=== PATIENT | female | born 1955 | race Caucasian/White ===

== ENCOUNTER 2018-07-29 09:21 | Inpatient (IN) | payer OTHER ==
--- NOTE | 2018-07-29 09:30 | EDM.PDOC ---
ED HPI GENERAL MEDICAL PROBLEM - General Chief Complaint: Cardiovascular Problem Stated Complaint: A FIB Time Seen by Provider: 07/29/18 09:30 - History of Present Illness INITIAL COMMENTS - FREE TEXT/NARRATIVE: 62-year-old male presents emergency room with palpitations weakness and fatigue. Patient awoke with this this morning has never had a quite like this in the past she's had palpitations before but nothing like this she is not having any chest pain chest pressure or dizziness associated with this and other than just not feeling right and have the palpitations is doing okay. She does have a significant past history of morbid obesity and hypothyroidism. She is on propanolol according to her regular doctor, Dr. Erwin he believes this is due to migraine headaches. Patient does not have significant coronary history other than prolapsed mitral valve. And pulmonary hypertension most likely related to her obesity and sleep apnea. - Related Data Allergies Allergy/AdvReac Type Severity Reaction Status Date / Time No Known Allergies Allergy Verified 07/29/18 09:30 Home Meds: Home Meds Aspirin [Ecotrin] 81 mg PO DAILY 07/29/18 [History] Cetirizine HCl 5 mg PO DAILY 07/29/18 [History] Empagliflozin/Metformin HCl [Synjardy 12.5-500 mg Tablet] 1 tab PO BIDMEALS 11/11 [History] Exenatide Microspheres [Bydureon Pen] 2 mg SUBCUT WEEKLY 07/29/18 [History] Fenofibrate,Micronized [Fenofibrate] 134 mg PO DAILY 07/29/18 [History] Fluticasone Furoate [Arnuity Ellipta] 1 inh TALHA DAILY PRN 07/29/18 [History] Imipramine HCl [Imipramine] 25 mg PO BEDTIME 07/29/18 [History] Levothyroxine 25 mcg PO DAILY 07/29/18 [History] Pravastatin Sodium [Pravastatin (Pravachol)] 40 mg PO DAILY 07/29/18 [History] Propranolol [Inderal LA] 80 mg PO DAILY 07/29/18 [History] Valsartan 160 mg PO DAILY 07/29/18 [History] Vortioxetine Hydrobromide [Trintellix] 10 mg PO DAILY 07/29/18 [History] ED ROS GENERAL - Review of Systems Review Of Systems: See Below Constitutional: Reports: No Symptoms HEENT: Reports: No Symptoms Respiratory: Reports: No Symptoms Cardiovascular: Reports: Palpitations. Denies: Chest Pain, Syncope Endocrine: Reports: No Symptoms GI/Abdominal: Reports: No Symptoms : Reports: No Symptoms Musculoskeletal: Reports: No Symptoms Skin: Reports: No Symptoms Neurological: Reports: No Symptoms Psychiatric: Reports: No Symptoms ED EXAM, GENERAL - Physical Exam Exam: See Below Exam Limited By: No Limitations General Appearance: Alert, No Apparent Distress Ears: Normal External Exam, Normal Canal, Hearing Grossly Normal, Normal TMs Nose: Normal Inspection, Normal Mucosa, No Blood Throat/Mouth: Normal Inspection, Normal Lips, Normal Teeth, Normal Gums, Normal Oropharynx, Normal Voice, No Airway Compromise Head: Atraumatic, Normocephalic Neck: Normal Inspection, Supple, Non-Tender, Full Range of Motion Respiratory/Chest: No Respiratory Distress, Lungs Clear, Normal Breath Sounds Cardiovascular: Regular Rate, Rhythm, No Edema, No Murmur GI/Abdominal: Normal Bowel Sounds, Soft, Non-Tender Extremities: No Pedal Edema Neurological: Alert, Oriented, CN II-XII Intact, Normal Cognition, No Motor/ Sensory Deficits Psychiatric: Normal Affect, Normal Mood Skin Exam: Warm, Dry, Intact. No: Diaphoretic Lymphatic: No Adenopathy EKG INTERPRETATION Rhythm: Other (Rapid ventricular response) Rate (Beats/Min): 160 Homer: Normal P-Wave: Absent QRS: Normal ST-T: Other (Very subtle nonspecific nondiagnostic changes) QT: Normal Comparison: NA - No Prior EKG EKG Interpretation Comments: Abnormal EKG Course - Vital Signs Last Recorded V/S: Last Vital Signs Temp 36.3 C 07/29/18 09:28 Pulse 121 H 07/29/18 13:20 Resp 18 07/29/18 12:23 BP 120/79 07/29/18 13:20 Pulse Ox 98 07/29/18 12:23 - Orders/Labs/Meds Orders: Active Orders 24 hr Category Date Time Status Patient Status [ADT] Routine ADT 07/29/18 14:47 Active EKG Documentation Completion [RC] STAT Care 07/29/18 09:41 Active Diltiazem 125 mg Med 07/29/18 12:30 Active Sodium Chloride 0.9% [Normal Saline] 100 ml IV TITRATE Metoclopramide [Reglan] Med 07/29/18 11:38 Active 10 mg IV ONETIME PRN Sodium Chloride 0.9% [Normal Saline] 1,000 ml Med 07/29/18 12:45 Active IV ASDIRECTED Medication Orders Diltiazem HCl 125 mg/ Sodium (Chloride) 125 mls @ 5 mls/hr IV TITRATE EZIO; Protocol Last Titration: 07/29/18 13:51 Dose: 15 mg/hr, 15 mls/hr Titration: 07/29/18 13:32 Dose: 10 mg/hr, 10 mls/hr Admin: 07/29/18 12:50 Dose: 5 mg/hr, 5 mls/hr Sodium Chloride (Normal Saline) 1,000 mls @ 50 mls/hr IV ASDIRECTED EZIO Last Admin: 07/29/18 12:50 Dose: 50 mls/hr Metoclopramide HCl (Reglan) 10 mg IV ONETIME PRN PRN Reason: Nausea/Vomiting Last Admin: 07/29/18 11:52 Dose: 10 mg Labs: Laboratory Tests 07/29/18 07/29/18 07/29/18 Range/Units 09:45 09:45 09:45 WBC 7.71 (3.98-10.04) K/mm3 RBC 5.23 H (3.98-5.22) M/mm3 Hgb 14.7 (11.2-15.7) gm/L Hct 44.8 (34.1-44.9) % MCV 85.7 (79.4-94.8) fl MCH 28.1 (25.6-32.2) pg MCHC 32.8 (32.2-35.5) g/dl RDW Std Deviation 45.5 (36.4-46.3) fL Plt Count 303 (182-369) K/mm3 MPV 10.9 (9.4-12.3) fl Neutrophils % (Manual) 40 (40-60) % Band Neutrophils % 0 (0-10) % Lymphocytes % (Manual) 56 H (20-40) % Atypical Lymphs % 0 % Monocytes % (Manual) 3 (2-10) % Eosinophils % (Manual) 0 L (0.7-5.8) % Basophils % (Manual) 1 (0.1-1.2) Platelet Estimate Adequate RBC Morph Comment Normal PT 10.9 (9.5-12.1) SECONDS INR 1.00 APTT 29 (24-31) SECONDS Sodium 142 (136-145) mEq/L Potassium 3.9 (3.5-5.1) mEq/L Chloride 107 (98-107) mEq/L Carbon Dioxide 23 (21-32) mEq/L Anion Gap 15.9 H (5-15) BUN 17 (7-18) mg/dL Creatinine 0.8 (0.55-1.02) mg/dL Est Cr Clr Drug Dosing 69.13 mL/min Estimated GFR (MDRD) > 60 (>60) mL/min BUN/Creatinine Ratio 21.3 H (14-18) Glucose 102 (80-115) mg/dL Calcium 9.3 (8.5-10.1) mg/dL Magnesium 2.1 (1.8-2.4) mg/dl Total Bilirubin 0.4 (0.2-1.0) mg/dL AST 35 (15-37) U/L ALT 40 (14-59) U/L Alkaline Phosphatase 67 (46-116) U/L Troponin I < 0.017 (0.00-0.056) ng/mL NT-Pro-B Natriuret Pep (0-125) pg/mL Total Protein 7.8 (6.4-8.2) g/dl Albumin 3.6 (3.4-5.0) g/dl Globulin 4.2 gm/dL Albumin/Globulin Ratio 0.9 L (1-2) TSH 3rd Generation 2.913 (0.358-3.74) uIU/mL 07/29/18 Range/Units 09:45 WBC (3.98-10.04) K/mm3 RBC (3.98-5.22) M/mm3 Hgb (11.2-15.7) gm/L Hct (34.1-44.9) % MCV (79.4-94.8) fl MCH (25.6-32.2) pg MCHC (32.2-35.5) g/dl RDW Std Deviation (36.4-46.3) fL Plt Count (182-369) K/mm3 MPV (9.4-12.3) fl Neutrophils % (Manual) (40-60) % Band Neutrophils % (0-10) % Lymphocytes % (Manual) (20-40) % Atypical Lymphs % % Monocytes % (Manual) (2-10) % Eosinophils % (Manual) (0.7-5.8) % Basophils % (Manual) (0.1-1.2) Platelet Estimate RBC Morph Comment PT (9.5-12.1) SECONDS INR APTT (24-31) SECONDS Sodium (136-145) mEq/L Potassium (3.5-5.1) mEq/L Chloride (98-107) mEq/L Carbon Dioxide (21-32) mEq/L Anion Gap (5-15) BUN (7-18) mg/dL Creatinine (0.55-1.02) mg/dL Est Cr Clr Drug Dosing mL/min Estimated GFR (MDRD) (>60) mL/min BUN/Creatinine Ratio (14-18) Glucose (80-115) mg/dL Calcium (8.5-10.1) mg/dL Magnesium (1.8-2.4) mg/dl Total Bilirubin (0.2-1.0) mg/dL AST (15-37) U/L ALT (14-59) U/L Alkaline Phosphatase (46-116) U/L Troponin I (0.00-0.056) ng/mL NT-Pro-B Natriuret Pep 345 H (0-125) pg/mL Total Protein (6.4-8.2) g/dl Albumin (3.4-5.0) g/dl Globulin gm/dL Albumin/Globulin Ratio (1-2) TSH 3rd Generation (0.358-3.74) uIU/mL Meds: Medications Generic Name Dose Route Start Last Admin Trade Name Freq PRN Reason Stop Dose Admin Diltiazem HCl 125 mg/ Sodium 125 mls @ 5 mls/hr 07/29/18 12:30 07/29/18 13:51 Chloride IV 15 mg/hr TITRATE EZIO 15 mls/hr Titration Protocol 5 MG/HR Sodium Chloride 1,000 mls @ 50 mls/hr 07/29/18 12:45 07/29/18 12:50 Normal Saline IV 50 mls/hr ASDIRECTED EZIO Administration Metoclopramide HCl 10 mg 07/29/18 11:38 07/29/18 11:52 Reglan IV 10 mg ONETIME PRN Administration Nausea/Vomiting Discontinued Medications Generic Name Dose Route Start Last Admin Trade Name Freq PRN Reason Stop Dose Admin Citric Acid/Sodium Citrate 30 ml 07/29/18 11:37 07/29/18 12:00 Bicitra Solution PO 07/29/18 11:38 30 ml ONETIME ONE Administration Citric Acid/Sodium Citrate Confirm 07/29/18 12:00 Bicitra Solution Administered 07/29/18 12:01 Dose 30 ml .ROUTE .STK-MED ONE Diltiazem HCl 10 mg 07/29/18 12:10 07/29/18 12:19 Cardizem IVPUSH 07/29/18 12:11 10 mg ONETIME STA Administration Diltiazem HCl Confirm 07/29/18 12:11 07/29/18 12:18 Cardizem Administered 07/29/18 12:12 Not Given Dose 50 mg .ROUTE .STK-MED ONE Enoxaparin Sodium 150 mg 07/29/18 11:07 07/29/18 11:32 Lovenox SUBCUT 07/29/18 11:08 150 mg ONETIME ONE Administration Famotidine 20 mg 07/29/18 11:37 07/29/18 11:52 Pepcid IVPUSH 07/29/18 11:38 20 mg ONETIME ONE Administration Fentanyl Confirm 07/29/18 11:42 Sublimaze Administered 07/29/18 11:43 Dose 100 mcg .ROUTE .STK-MED ONE Lactated Ringer's 1,000 mls @ 50 mls/hr 07/29/18 09:45 07/29/18 10:43 Ringers, Lactated IV 50 mls/hr ASDIRECTED EZIO Infusion Lactated Ringer's 500 mls @ 999 mls/hr 07/29/18 10:21 07/29/18 11:35 Ringers, Lactated IV 07/29/18 10:51 Not Given .BOLUS ONE Lidocaine HCl Confirm 07/29/18 11:41 Xylocaine-Mpf 1% Administered 07/29/18 11:42 Dose 6 mls @ as directed .ROUTE .STK-MED ONE Metoprolol Tartrate 5 mg 07/29/18 09:39 07/29/18 10:05 Lopressor IVPUSH 07/29/18 09:40 5 mg ONETIME ONE Administration Metoprolol Tartrate 5 mg 07/29/18 10:20 07/29/18 10:46 Lopressor IVPUSH 07/29/18 10:21 5 mg ONETIME ONE Administration Midazolam HCl Confirm 07/29/18 11:42 Versed 1 Mg/Ml Administered 07/29/18 11:43 Dose 2 mg .ROUTE .STK-MED ONE Propofol Confirm 07/29/18 11:42 Diprivan 20 Ml Administered 07/29/18 11:43 Dose 200 mg .ROUTE .STK-MED ONE - Re-Assessments/Exams Free Text/Narrative Re-Assessment/Exam: 07/29/18 11:31 We have attempted IV Lopressor with out much success she's had 2 doses and her blood pressure keeps going down with this the patient is been asymptomatic however however because of the low blood pressure will proceed to cardioversion. The patient will receive Lovenox anticipate starting Eliquis late this evening. Patient situation has been discussed with Dr. Erwin the patient's regular physician. Laboratory evaluation is nondiagnostic BNP is mildly elevated at 345 whether this is due to the tachyarrhythmia or under line compensated heart failure is unclear but further underscores cardioversion at this point the best we can tell is patient was absolutely asymptomatic yesterday and the time leading into this just awoke with palpitations this morning. She's had palpitations in the past but they've been much different from this she felt okay with those today's palpitations she had the sensation that something was wrong. 07/29/18 12:28 Deciding cardioverter the patient's blood pressure actually came up quite nicely we will go ahead and attempt further medical interventions she's received 10 mg of diltiazem and slowed with this we will start a drip and see how she does. Anesthesia has evaluated her and we can do cardioversion if needed 07/29/18 14:22 A she has better rate control on Cardizem drip discussed cardioversion which discomfort with some risk especially with the nature of the cardioversion and given her large body habitus would be technically much more difficult. Discussed this with the patient and she is comfortable staying on the drip and be in place in the hospital for further evaluation and treatment case discussed with Dr. Miller our hospitalist who will be over shortly to see the patient Departure - Departure Time of Disposition: 14:31 Disposition: Admitted As Inpatient 67 Clinical Impression: Atrial fibrillation with rapid ventricular response Referrals: Angel Luis Howard MD [Primary Care Provider] - Forms: ED Department Discharge - My Orders Last 24 Hours: My Active Orders 07/29/18 09:41 EKG Documentation Completion [RC] STAT 07/29/18 12:30 Diltiazem 125 mg Sodium Chloride 0.9% [Normal Saline] 100 ml IV TITRATE 07/29/18 12:45 Sodium Chloride 0.9% [Normal Saline] 1,000 ml IV ASDIRECTED 07/29/18 14:47 Patient Status [ADT] Routine - Assessment/Plan Last 24 Hours: My Active Orders 07/29/18 09:41 EKG Documentation Completion [RC] STAT 07/29/18 12:30 Diltiazem 125 mg Sodium Chloride 0.9% [Normal Saline] 100 ml IV TITRATE 07/29/18 12:45 Sodium Chloride 0.9% [Normal Saline] 1,000 ml IV ASDIRECTED 07/29/18 14:47 Patient Status [ADT] Routine
[2018-07-29] MEDS ORDERED: Metoprolol Tartrate 5 MG/5 ML SDV IVPUSH ONE ×2 (09:39→10:20)
[2018-07-29] MEDS ORDERED: Lactated Ringers 1,000 ML IV SCH (09:45)
[2018-07-29] MEDS ORDERED: Lactated Ringers 500 ML IV ONE (10:21)
--- NOTE | 2018-07-29 10:47 | CR ---
Chest: Portable view of the chest was obtained. Comparison: No prior chest x-ray, previous chest CT of 02/27/16 Heart size is within normal limits for portable technique. Tortuous thoracic aorta is seen. Lungs are clear without acute parenchymal change. Bony structures are grossly intact. Impression: 1. Nothing acute is appreciated on portable chest x-ray. Diagnostic code #1
[2018-07-29] MEDS ORDERED: Enoxaparin 150 MG/1 ML Syringe SUBCUT ONE (11:07)
--- NOTE | 2018-07-29 11:33 | PCM.PREANE ---
Preanesthetic Assessment - Anesthesia/Transfusion/Family Hx Anesthesia History: Prior Anesthesia Without Reaction Family History of Anesthesia Reaction: No Transfusion History: No Prior Transfusion(s) Intubation History: Unknown - Review of Systems General: No Symptoms Pulmonary: No Symptoms (Pulmonary HTN- from past use of phen/phen. DIXIE/CPAP) Cardiovascular: No Symptoms (New onset of Atrial Fibrillation with RVR 170-180'2 ), Dyspnea on Exertion Gastrointestinal: Diarrhea Neurological: Headache (history of migraines) Other: Reports: Easy Bruising, Diabetes (prediabetic), Thyroid Problems ( hypothyroid) - Physical Assessment NPO Status Date: 07/29/18 NPO Status Time: 06:30 Pulse: 144 O2 Sat by Pulse Oximetry: 98 Respiratory Rate: 18 Blood Pressure: 117/94 Vital Signs: Last Vital Signs Temp 36.3 C 07/29/18 09:28 Pulse 146 H 07/29/18 10:51 Resp 18 07/29/18 09:28 BP 105/60 07/29/18 10:51 Pulse Ox 98 07/29/18 09:28 Height: 1.68 m Weight: 157.397 kg ASA Class: 3E Mental Status: Alert & Oriented x3 Airway Class: Mallampati = 2 Dentition: Reports: Normal Dentition, Caries Thyro-Mental Finger Breadths: 3 Mouth Opening Finger Breadths: 3 ROM/Head Extension: Full Lungs: Clear to Auscultation, Normal Respiratory Effort Cardiovascular: Regular Rate, Regular Rhythm, No Murmurs - Lab Values: Laboratory Last Values WBC 7.71 K/mm3 (3.98-10.04) 07/29/18 09:45 RBC 5.23 M/mm3 (3.98-5.22) H 07/29/18 09:45 Hgb 14.7 gm/L (11.2-15.7) 07/29/18 09:45 Hct 44.8 % (34.1-44.9) 07/29/18 09:45 MCV 85.7 fl (79.4-94.8) 07/29/18 09:45 MCH 28.1 pg (25.6-32.2) 07/29/18 09:45 MCHC 32.8 g/dl (32.2-35.5) 07/29/18 09:45 RDW Std Deviation 45.5 fL (36.4-46.3) 07/29/18 09:45 Plt Count 303 K/mm3 (182-369) 07/29/18 09:45 MPV 10.9 fl (9.4-12.3) 07/29/18 09:45 Neutrophils % (Manual) 40 % (40-60) 07/29/18 09:45 Band Neutrophils % 0 % (0-10) 07/29/18 09:45 Lymphocytes % (Manual) 56 % (20-40) H 07/29/18 09:45 Atypical Lymphs % 0 % 07/29/18 09:45 Monocytes % (Manual) 3 % (2-10) 07/29/18 09:45 Eosinophils % (Manual) 0 % (0.7-5.8) L 07/29/18 09:45 Basophils % (Manual) 1 (0.1-1.2) 07/29/18 09:45 Platelet Estimate Adequate 07/29/18 09:45 RBC Morph Comment Normal 07/29/18 09:45 PT 10.9 SECONDS (9.5-12.1) 07/29/18 09:45 INR 1.00 07/29/18 09:45 APTT 29 SECONDS (24-31) 07/29/18 09:45 Sodium 142 mEq/L (136-145) 07/29/18 09:45 Potassium 3.9 mEq/L (3.5-5.1) 07/29/18 09:45 Chloride 107 mEq/L (98-107) 07/29/18 09:45 Carbon Dioxide 23 mEq/L (21-32) 07/29/18 09:45 Anion Gap 15.9 (5-15) H 07/29/18 09:45 BUN 17 mg/dL (7-18) 07/29/18 09:45 Creatinine 0.8 mg/dL (0.55-1.02) 07/29/18 09:45 Est Cr Clr Drug Dosing 69.13 mL/min 07/29/18 09:45 Estimated GFR (MDRD) > 60 mL/min (>60) 07/29/18 09:45 BUN/Creatinine Ratio 21.3 (14-18) H 07/29/18 09:45 Glucose 102 mg/dL (80-115) 07/29/18 09:45 Calcium 9.3 mg/dL (8.5-10.1) 07/29/18 09:45 Magnesium 2.1 mg/dl (1.8-2.4) 07/29/18 09:45 Total Bilirubin 0.4 mg/dL (0.2-1.0) 07/29/18 09:45 AST 35 U/L (15-37) 07/29/18 09:45 ALT 40 U/L (14-59) 07/29/18 09:45 Alkaline Phosphatase 67 U/L (46-116) 07/29/18 09:45 Troponin I < 0.017 ng/mL (0.00-0.056) 07/29/18 09:45 NT-Pro-B Natriuret Pep 345 pg/mL (0-125) H 07/29/18 09:45 Total Protein 7.8 g/dl (6.4-8.2) 07/29/18 09:45 Albumin 3.6 g/dl (3.4-5.0) 07/29/18 09:45 Globulin 4.2 gm/dL 07/29/18 09:45 Albumin/Globulin Ratio 0.9 (1-2) L 07/29/18 09:45 TSH 3rd Generation 2.913 uIU/mL (0.358-3.74) 07/29/18 09:45 All lab values reviewed and noted and within acceptable ranges to proceed with procedure. - Imaging/EKG Impressions: EKG: atrial fibrillation with RVR rate= 140 CXR: negative Stress Test: 2016 negative stress test - Allergies Allergies/Adverse Reactions: Allergies Allergy/AdvReac Type Severity Reaction Status Date / Time No Known Allergies Allergy Verified 07/29/18 09:30 - Anesthesia Plan Pre-Op Medication Ordered: Beta Annetta Beta Annetta: Metoprolol Med Last Dose Date: 07/29/18 Med Last Dose Time: 10:46 - Acknowledgements Anesthesia Type Planned: MAC Pt an Appropriate Candidate for the Planned Anesthesia: Yes Alternatives and Risks of Anesthesia Discussed w Pt/Guardian: Yes Pt/Guardian Understands and Agrees with Anesthesia Plan: Yes PreAnesthesia Questionnaire Cardiovascular History: Reports: Hypertension Respiratory History: Reports: Sleep Apnea, Other (See Below) Other Respiratory History: pulmonary hypertension, cpap at night Gastrointestinal History: Reports: Other (See Below) Other Gastrointestinal History: obesity Neurological History: Reports: Other (See Below) Other Neuro History: previous head injury Psychiatric History: Reports: Depression, Other (See Below) Other Psychiatric History: halfway memory loss Endocrine/Metabolic History: Reports: Diabetes, Type II, Hypothyroidism, Other ( See Below) Other Endocrine/Metabolic History: metabolic syndrome, vitamin d deficiency - Past Surgical History HEENT Surgical History: Reports: Tonsillectomy Female Surgical History: Reports: Other (See Below) Other Female Surgeries/Procedures: neoplasm of breast Musculoskeletal Surgical History: Reports: Other (See Below) Other Musculoskeletal Surgeries/Procedures:: ankle surgery - SUBSTANCE USE Smoking Status *Q: Never Smoker Second Hand Smoke Exposure: No Recreational Drug Use History: No - HOME MEDS Home Medications: Home Meds Aspirin [Ecotrin] 81 mg PO DAILY 07/29/18 [History] Cetirizine HCl 5 mg PO DAILY 07/29/18 [History] Empagliflozin/Metformin HCl [Synjardy 12.5-500 mg Tablet] 1 tab PO BIDMEALS 11/11 [History] Exenatide Microspheres [Bydureon Pen] 2 mg SUBCUT WEEKLY 07/29/18 [History] Fenofibrate,Micronized [Fenofibrate] 134 mg PO DAILY 07/29/18 [History] Fluticasone Furoate [Arnuity Ellipta] 1 inh TALHA DAILY PRN 07/29/18 [History] Imipramine HCl [Imipramine] 25 mg PO BEDTIME 07/29/18 [History] Levothyroxine 25 mcg PO DAILY 07/29/18 [History] Pravastatin Sodium [Pravastatin (Pravachol)] 40 mg PO DAILY 07/29/18 [History] Propranolol [Inderal LA] 80 mg PO DAILY 07/29/18 [History] Valsartan 160 mg PO DAILY 07/29/18 [History] Vortioxetine Hydrobromide [Trintellix] 10 mg PO DAILY 07/29/18 [History] - CURRENT (IN HOUSE) MEDS Current Meds: Current Medications Lactated Ringer's (Ringers, Lactated) 1,000 mls @ 50 mls/hr IV ASDIRECTED EZIO Last Infusion: 07/29/18 10:43 Dose: 50 mls/hr Discontinued Medications Enoxaparin Sodium (Lovenox) 150 mg SUBCUT ONETIME ONE Stop: 07/29/18 11:08 Lactated Ringer's (Ringers, Lactated) 500 mls @ 999 mls/hr IV .BOLUS ONE Stop: 07/29/18 10:51 Metoprolol Tartrate (Lopressor) 5 mg IVPUSH ONETIME ONE Stop: 07/29/18 09:40 Last Admin: 07/29/18 10:05 Dose: 5 mg Metoprolol Tartrate (Lopressor) 5 mg IVPUSH ONETIME ONE Stop: 07/29/18 10:21 Last Admin: 07/29/18 10:46 Dose: 5 mg
[2018-07-29] MEDS ORDERED: Famotidine 20 MG/2 ML SDV IVPUSH ONE (11:37)
[2018-07-29] MEDS ORDERED: Citric Acid/Sodium Citrate Solution 30 ML Cup PO ONE (11:37)
[2018-07-29] MEDS ORDERED: Metoclopramide 10 MG/2 ML SDV IV PRN (11:38)
[2018-07-29] MEDS ORDERED: Lidocaine 1% 0 ML ONE (11:41)
[2018-07-29] MEDS ORDERED: Propofol 200 MG/20 ML SDV ONE (11:42)
[2018-07-29] MEDS ORDERED: Midazolam 1 MG/ML 2 ML SDV ONE (11:42)
[2018-07-29] MEDS ORDERED: fentaNYL 100 MCG/2 ML SDV ONE (11:42)
[2018-07-29] MEDS ORDERED: Citric Acid/Sodium Citrate Solution 30 ML Cup ONE (12:00)
[2018-07-29] MEDS ORDERED: Diltiazem 50 MG/10 ML SDV IVPUSH STA (12:10)
[2018-07-29] MEDS ORDERED: Diltiazem 50 MG/10 ML SDV ONE (12:11)
[2018-07-29] MEDS ORDERED: Sodium Chloride 0.9% 1,000 ML IV SCH (12:45)
[2018-07-29] MEDS: Diltiazem 125 MG in Sodium Chloride 0.9% 100 ML IV SCH ×2 (12:50→21:39)
[2018-07-29] MEDS ORDERED: Sodium Chloride 0.9% 500 ML IV ONE (20:12)
[2018-07-29] MEDS ORDERED: Metoprolol Tartrate 5 MG/5 ML SDV IVPUSH PRN (21:30)
[2018-07-29] MEDS: Sodium Chloride 0.9% 1,000 ML IV SCH (21:44)
[2018-07-29] MEDS ORDERED: Ondansetron 4 MG Tab.DIS PO PRN (21:59)
[2018-07-29] MEDS ORDERED: HYDROmorphone 1 MG/ML Syringe IVPUSH PRN (21:59)
[2018-07-29] MEDS ORDERED: Acetaminophen/HYDROcodone 325-5 MG Tab PO PRN (21:59)
[2018-07-29] MEDS ORDERED: Acetaminophen 325 MG Tab PO PRN (21:59)
[2018-07-29] MEDS ORDERED: Ondansetron 4 MG/2 ML SDV IV PRN (21:59)
[2018-07-29] MEDS: Insulin Lispro 100 Unit/ML 3 ML KwikPen SUBCUT SCH (22:05)
--- NOTE | 2018-07-29 22:06 | PCM.HP ---
H&P History of Present Illness - General Date of Service: 07/29/18 Admit Problem/Dx: Admission Diagnosis/Problem Admission Diagnosis/Problem Atrial fibrillation with rapid ventricular response Source of Information: Patient History Limitations: Reports: No Limitations - History of Present Illness Initial Comments - Free Text/Narative: HPI: This is a 62 yo female with past medical hx/o DM2, Pulmonary HTN, HTN, prolapsed mitral valve, HLD, Hypothyroid, Depression, Sleep Apnea on CPAP, Morbid Obesity who comes in for Afib with RVR. She c/o palpitations, weakness and fatigue. She denies F/C, JOHNSON, Dizziness, N/V/D, Chest pain, or Urinary/GI symptoms. Her symptoms improved after receiving Lopressor, Cardizem and Lovenox in the ED. Her initial workup in the ED shows a CBC remarkable for RBC 5.23, Lymph 56% . Coagulation studies show PT 10.9, INR 1, APTT 29. Her chemistry is remarkable for AGap 15.9, BNP 345. TSH WNL. EKG in ED shows 160bpm w/ absent p waves. She is subsequently admitted to the ICU. She is a Full Code. Her PCP is Dr. Mandy Miller. - Related Data Allergies/Adverse Reactions: Allergies Allergy/AdvReac Type Severity Reaction Status Date / Time No Known Allergies Allergy Verified 07/29/18 09:30 Home Medications: Home Meds Empagliflozin/Metformin HCl [Synjardy 12.5-500 mg Tablet] 1 tab PO BID 07/29/18 [History] Exenatide Microspheres [Bydureon Pen] 2 mg SUBCUT WEEKLY 07/29/18 [History] Fenofibrate,Micronized [Fenofibrate] 134 mg PO DAILY 07/29/18 [History] Imipramine HCl [Imipramine] 25 mg PO BEDTIME 07/29/18 [History] Levothyroxine 25 mcg PO DAILY 07/29/18 [History] Pravastatin Sodium [Pravastatin (Pravachol)] 40 mg PO DAILY 07/29/18 [History] Propranolol [Inderal LA] 80 mg PO DAILY 07/29/18 [History] Valsartan 160 mg PO DAILY 07/29/18 [History] Past Medical History Cardiovascular History: Reports: Hypertension Respiratory History: Reports: Sleep Apnea, Other (See Below) Other Respiratory History: pulmonary hypertension, cpap at night Gastrointestinal History: Reports: Other (See Below) Other Gastrointestinal History: obesity Neurological History: Reports: Other (See Below) Other Neuro History: previous head injury Psychiatric History: Reports: Depression, Other (See Below) 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 Endocrine/Metabolic History: Reports: Diabetes, Type II, Hypothyroidism, Other ( See Below) Other Endocrine/Metabolic History: metabolic syndrome, vitamin d deficiency - Past Surgical History HEENT Surgical History: Reports: Tonsillectomy Female Surgical History: Reports: Other (See Below) 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 Denies: Fever, Chills HEENT: Reports: No Symptoms Pulmonary: Reports: No Symptoms. Denies: Shortness of Breath, Cough Cardiovascular: Reports: Palpitations, Blood Pressure Problem. Denies: Chest Pain, Edema Gastrointestinal: Reports: No Symptoms. Denies: Abdominal Pain, Diarrhea, Nausea, Vomiting Genitourinary: Reports: No Symptoms Musculoskeletal: Reports: No Symptoms Skin: Reports: No Symptoms Psychiatric: Reports: No Symptoms Neurological: Reports: No Symptoms Hematologic/Lymphatic: Reports: No Symptoms Immunologic: Reports: No Symptoms Exam - Exam Exam: See Below - Vital Signs Vital Signs: Last Vital Signs Temp 98.0 F 07/29/18 20:00 Pulse 136 H 07/29/18 18:00 Resp 19 07/29/18 20:00 BP 107/83 07/29/18 21:00 Pulse Ox 96 07/29/18 21:00 Weight: 366 lb 3.2 oz - Exam Quality Assessment: DVT Prophylaxis General: Alert, Oriented, Cooperative, Mild Distress HEENT: PERRLA, Hearing Intact, Mucosa Moist & Hanson, Nares Patent, Normal Nasal Septum, Posterior Pharynx Clear, Conjunctiva Clear, EOMI, EACs Clear, TMs Clear Neck: Supple, Trachea Midline, 2 Lungs: Clear to Auscultation, Normal Respiratory Effort Cardiovascular: Irregular Rhythm, Tachycardia. No: Regular Rate (irregular) GI/Abdominal Exam: Normal Bowel Sounds, Soft, Non-Tender, No Organomegaly, No Distention, No Abnormal Bruit, No Mass, Pelvis Stable (Female) Exam: Deferred Rectal (Female) Exam: Deferred Back Exam: Normal Inspection Extremities: Normal Inspection, Normal Range of Motion, Non-Tender, No Pedal Edema, Normal Capillary Refill Peripheral Pulses: 2+: Posterior Tibial (L), Posterior Tibial (R), Dorsalis Pedis (L), Dorsalis Pedis (R) Skin: Warm, Dry, Intact Neurological: Cranial Nerves Intact (grossly) Neuro Extensive - Mental Status: Alert, Oriented x3, Normal Mood/Affect, Normal Cognition, Memory Intact Psychiatric: Alert, Normal Affect, Normal Mood - Patient Data Lab Results Last 24 hrs: Laboratory Results - last 24 hr 07/29/18 07/29/18 07/29/18 Range/Units 09:45 09:45 09:45 WBC 7.71 (3.98-10.04) K/mm3 RBC 5.23 H (3.98-5.22) M/mm3 Hgb 14.7 (11.2-15.7) gm/L Hct 44.8 (34.1-44.9) % MCV 85.7 (79.4-94.8) fl MCH 28.1 (25.6-32.2) pg MCHC 32.8 (32.2-35.5) g/dl RDW Std Deviation 45.5 (36.4-46.3) fL Plt Count 303 (182-369) K/mm3 MPV 10.9 (9.4-12.3) fl Neutrophils % (Manual) 40 (40-60) % Band Neutrophils % 0 (0-10) % Lymphocytes % (Manual) 56 H (20-40) % Atypical Lymphs % 0 % Monocytes % (Manual) 3 (2-10) % Eosinophils % (Manual) 0 L (0.7-5.8) % Basophils % (Manual) 1 (0.1-1.2) Platelet Estimate Adequate RBC Morph Comment Normal PT 10.9 (9.5-12.1) SECONDS INR 1.00 APTT 29 (24-31) SECONDS Sodium 142 (136-145) mEq/L Potassium 3.9 (3.5-5.1) mEq/L Chloride 107 (98-107) mEq/L Carbon Dioxide 23 (21-32) mEq/L Anion Gap 15.9 H (5-15) BUN 17 (7-18) mg/dL Creatinine 0.8 (0.55-1.02) mg/dL Est Cr Clr Drug Dosing 69.13 mL/min Estimated GFR (MDRD) > 60 (>60) mL/min BUN/Creatinine Ratio 21.3 H (14-18) Glucose 102 (80-115) mg/dL POC Glucose (80-115) mg/dL Calcium 9.3 (8.5-10.1) mg/dL Magnesium 2.1 (1.8-2.4) mg/dl Total Bilirubin 0.4 (0.2-1.0) mg/dL AST 35 (15-37) U/L ALT 40 (14-59) U/L Alkaline Phosphatase 67 (46-116) U/L Troponin I < 0.017 (0.00-0.056) ng/mL NT-Pro-B Natriuret Pep (0-125) pg/mL Total Protein 7.8 (6.4-8.2) g/dl Albumin 3.6 (3.4-5.0) g/dl Globulin 4.2 gm/dL Albumin/Globulin Ratio 0.9 L (1-2) TSH 3rd Generation 2.913 (0.358-3.74) uIU/mL 07/29/18 07/29/18 Range/Units 09:45 20:19 WBC (3.98-10.04) K/mm3 RBC (3.98-5.22) M/mm3 Hgb (11.2-15.7) gm/L Hct (34.1-44.9) % MCV (79.4-94.8) fl MCH (25.6-32.2) pg MCHC (32.2-35.5) g/dl RDW Std Deviation (36.4-46.3) fL Plt Count (182-369) K/mm3 MPV (9.4-12.3) fl Neutrophils % (Manual) (40-60) % Band Neutrophils % (0-10) % Lymphocytes % (Manual) (20-40) % Atypical Lymphs % % Monocytes % (Manual) (2-10) % Eosinophils % (Manual) (0.7-5.8) % Basophils % (Manual) (0.1-1.2) Platelet Estimate RBC Morph Comment PT (9.5-12.1) SECONDS INR APTT (24-31) SECONDS Sodium (136-145) mEq/L Potassium (3.5-5.1) mEq/L Chloride (98-107) mEq/L Carbon Dioxide (21-32) mEq/L Anion Gap (5-15) BUN (7-18) mg/dL Creatinine (0.55-1.02) mg/dL Est Cr Clr Drug Dosing mL/min Estimated GFR (MDRD) (>60) mL/min BUN/Creatinine Ratio (14-18) Glucose (80-115) mg/dL POC Glucose 87 (80-115) mg/dL Calcium (8.5-10.1) mg/dL Magnesium (1.8-2.4) mg/dl Total Bilirubin (0.2-1.0) mg/dL AST (15-37) U/L ALT (14-59) U/L Alkaline Phosphatase (46-116) U/L Troponin I (0.00-0.056) ng/mL NT-Pro-B Natriuret Pep 345 H (0-125) pg/mL Total Protein (6.4-8.2) g/dl Albumin (3.4-5.0) g/dl Globulin gm/dL Albumin/Globulin Ratio (1-2) TSH 3rd Generation (0.358-3.74) uIU/mL Result Diagrams: 07/29/18 09:45 07/29/18 09:45 - Problem List (1) Morbid obesity with body mass index (BMI) of 50.0 to 59.9 in adult SNOMED Code(s): 356093186 ICD Code: E66.01 - MORBID (SEVERE) OBESITY DUE TO EXCESS CALORIES; Z68.43 - BODY MASS INDEX (BMI) 50-59.9, ADULT Status: Chronic Priority: Low Current Visit: Yes (2) Atrial fibrillation with rapid ventricular response SNOMED Code(s): 202852572604115 ICD Code: I48.91 - UNSPECIFIED ATRIAL FIBRILLATION Status: Acute Priority : High Current Visit: Yes (3) DM2 (diabetes mellitus, type 2) SNOMED Code(s): 25121878 ICD Code: E11.9 - TYPE 2 DIABETES MELLITUS WITHOUT COMPLICATIONS Status: Chronic Priority: Medium Current Visit: Yes Qualifiers: Diabetes mellitus residential insulin use: without pull up hand use Diabetes mellitus complication status: with unspecified complications Qualified Code(s) : E11.8 - Type 2 diabetes mellitus with unspecified complications (4) Pulmonary HTN SNOMED Code(s): 52425689 ICD Code: I27.20 - PULMONARY HYPERTENSION, UNSPECIFIED Status: Chronic Priority: Low Current Visit: No (5) HTN (hypertension) SNOMED Code(s): 18501341 ICD Code: I10 - ESSENTIAL (PRIMARY) HYPERTENSION Status: Chronic Priority : Low Current Visit: No Qualifiers: Hypertension type: unspecified Qualified Code(s): I10 - Essential (primary ) hypertension (6) HLD (hyperlipidemia) SNOMED Code(s): 04021095 ICD Code: E78.5 - HYPERLIPIDEMIA, UNSPECIFIED Status: Chronic Priority: Low Current Visit: No Qualifiers: Hyperlipidemia type: unspecified Qualified Code(s): E78.5 - Hyperlipidemia , unspecified (7) Hypothyroid SNOMED Code(s): 47086072 ICD Code: E03.9 - HYPOTHYROIDISM, UNSPECIFIED Status: Chronic Priority: Low Current Visit: No Qualifiers: Hypothyroidism type: unspecified Qualified Code(s): E03.9 - Hypothyroidism , unspecified (8) Obstructive sleep apnea on CPAP SNOMED Code(s): 37410773 ICD Code: G47.33 - OBSTRUCTIVE SLEEP APNEA (ADULT) (PEDIATRIC); Z99.89 - DEPENDENCE ON OTHER ENABLING MACHINES AND DEVICES Status: Chronic Priority: Low Current Visit: Yes Problem List Initiated/Reviewed/Updated: Yes Orders Last 24hrs: Active Orders 24 hr Category Date Time Status Patient Status [ADT] Routine ADT 07/29/18 14:47 Active Blood Glucose Check, Bedside [] QIDACANDBED Care 07/29/18 21:00 Active CPAP Adult [RT BiPAP/CPAP] [RC] ASDIRECTED Care 07/29/18 22:02 Ordered Cardiac Monitoring [RC] CONTINUOUS Care 07/29/18 21:59 Ordered Communication Order [RC] ROUTINE Care 07/30/18 05:00 Active Height and Weight [RC] DAILY Care 07/29/18 21:59 Ordered Intake and Output [RC] QSHIFT Care 07/29/18 21:59 Ordered May Shower [RC] ASDIRECTED Care 07/29/18 21:59 Ordered Oxygen Therapy [RC] PRN Care 07/29/18 21:59 Ordered Pulse Oximetry [RC] PRN Care 07/29/18 21:59 Ordered Up ad Lynette [RC] ASDIRECTED Care 07/29/18 21:59 Ordered VTE/DVT Education [RC] PER UNIT ROUTINE Care 07/29/18 21:59 Ordered Vital Signs [RC] Q4H Care 07/29/18 21:59 Ordered Consult to Diabetic Nurse Specialist [CONS] Routine Cons 07/29/18 21:59 Ordered Consult to Ruffling Hemmer Automatic [CONS] Routine Cons 07/29/18 21:59 Ordered Respiratory Care Assess and Treatment [CONS] Routine Cons 07/29/18 21:59 Ordered ADA Diabetic [[place] [employer] Diet] [DIET Diet 07/30/18 Breakfast Ordered ] Heart Healthy Diet [DIET] Diet 07/29/18 Dinner Active BASIC METABOLIC PANEL,BMP [CHEM] AM Lab 07/30/18 05:11 Ordered BASIC METABOLIC PANEL,BMP [CHEM] AM Lab 07/31/18 05:11 Ordered BASIC METABOLIC PANEL,BMP [CHEM] AM Lab 08/01/18 05:11 Ordered BASIC METABOLIC PANEL,BMP [CHEM] AM Lab 08/02/18 05:11 Ordered BASIC METABOLIC PANEL,BMP [CHEM] AM Lab 08/03/18 05:11 Ordered CBC WITH AUTO DIFF [HEME] AM Lab 07/30/18 05:11 Ordered CBC WITH AUTO DIFF [HEME] AM Lab 07/31/18 05:11 Ordered CBC WITH AUTO DIFF [HEME] AM Lab 08/01/18 05:11 Ordered CBC WITH AUTO DIFF [HEME] AM Lab 08/02/18 05:11 Ordered CBC WITH AUTO DIFF [HEME] AM Lab 08/03/18 05:11 Ordered GLYCOSYLATED HEMOGLOBIN,HGBA1C [CHEM] AM Lab 07/30/18 05:11 Ordered LIPID PANEL [CHEM] AM Lab 07/30/18 05:11 Ordered MAGNESIUM [CHEM] AM Lab 07/30/18 05:11 Ordered MAGNESIUM [CHEM] AM Lab 07/31/18 05:11 Ordered MAGNESIUM [CHEM] AM Lab 08/01/18 05:11 Ordered MAGNESIUM [CHEM] AM Lab 08/02/18 05:11 Ordered MAGNESIUM [CHEM] AM Lab 08/03/18 05:11 Ordered Acetaminophen [Tylenol] Med 07/29/18 21:59 Ordered 650 mg PO Q4H PRN Acetaminophen/HYDROcodone [Elcho 325-5 MG] Med 07/29/18 21:59 Ordered 1 tab PO Q4H PRN Diltiazem 125 mg Med 07/29/18 12:30 Active Sodium Chloride 0.9% [Normal Saline] 100 ml IV TITRATE Empagliflozin/Metformin HCl [Synjardy 12.5-500 mg Med 07/30/18 09:00 Ordered Tablet] 1 tab PO BID Enoxaparin [Lovenox] Med 07/29/18 22:00 Ordered 150 mg SUBCUT Q12H Fenofibrate,Micronized Med 07/30/18 09:00 Ordered 134 mg PO DAILY HYDROmorphone [Dilaudid] Med 07/29/18 21:59 Ordered 0.25 mg IVPUSH Q2H PRN Imipramine HCl Med 07/30/18 21:00 Ordered 25 mg PO BEDTIME Insulin Lispro [HumaLOG] Med 07/29/18 22:00 Active 0 unit SUBCUT QIDACANDBED Levothyroxine Med 07/30/18 09:00 Ordered 25 mcg PO DAILY Metoclopramide [Reglan] Med 07/29/18 11:38 Active 10 mg IV ONETIME PRN Metoprolol Tartrate [Lopressor] Med 07/29/18 21:30 Active 5 mg IVPUSH Q4H PRN Ondansetron [Zofran ODT] Med 07/29/18 21:59 Ordered 4 mg PO Q4H PRN Ondansetron [Zofran] Med 07/29/18 21:59 Ordered 4 mg IV Q4H PRN Pravastatin Sodium Med 07/30/18 09:00 Ordered 40 mg PO DAILY Propranolol [Inderal LA] Med 07/30/18 09:00 Ordered 80 mg PO DAILY Sodium Chloride 0.9% [Normal Saline] 1,000 ml Med 07/29/18 20:00 Active IV ASDIRECTED Temazepam [Restoril] Med 07/29/18 21:59 Ordered 7.5 mg PO BEDTIME PRN Valsartan [Valsartan] Med 07/30/18 09:00 Ordered 160 mg PO DAILY Resuscitation Status Routine Resus Stat 07/29/18 21:59 Ordered Medication Orders Acetaminophen (Tylenol) 650 mg PO Q4H PRN PRN Reason: Pain (Mild 1-3)/fever Hydrocodone Bitart/Acetaminophen (Elcho 325-5 Mg) 1 tab PO Q4H PRN PRN Reason: Pain (moderate 4-6) Enoxaparin Sodium (Lovenox) 150 mg SUBCUT Q12H [facility] Hydromorphone HCl (Dilaudid) 0.25 mg IVPUSH Q2H PRN PRN Reason: Pain (severe 7-10) Diltiazem HCl 125 mg/ Sodium (Chloride) 125 mls @ 5 mls/hr IV TITRATE [facility]; Protocol Last Admin: 07/29/18 21:39 Dose: 15 mg/hr, 15 mls/hr Titration: 07/29/18 21:39 Dose: 15 mg/hr, 15 mls/hr Titration: 07/29/18 13:51 Dose: 15 mg/hr, 15 mls/hr Titration: 07/29/18 13:32 Dose: 10 mg/hr, 10 mls/hr Admin: 07/29/18 12:50 Dose: 5 mg/hr, 5 mls/hr Sodium Chloride (Normal Saline) 1,000 mls @ 125 mls/hr IV ASDIRECTED [facility] Last Admin: 07/29/18 21:44 Dose: 125 mls/hr Imipramine HCl (Imipramine Hcl) 25 mg PO BEDTIME [facility] Insulin Human Lispro (Humalog) 0 unit SUBCUT QIDACANDBED [facility]; Protocol Last Admin: 07/29/18 22:05 Dose: Levothyroxine Sodium (Levothyroxine) 25 mcg PO DAILY [facility] Metoclopramide HCl (Reglan) 10 mg IV ONETIME PRN PRN Reason: Nausea/Vomiting Last Admin: 07/29/18 11:52 Dose: 10 mg Metoprolol Tartrate (Lopressor) 5 mg IVPUSH Q4H PRN PRN Reason: Tachycardia Non-Formulary Medication (Empagliflozin/Metformin Hcl [Synjardy 12.5-500 Mg Tablet]) 1 tab PO BID [facility] Non-Formulary Medication (Fenofibrate,Micronized) 134 mg PO DAILY [facility] Non-Formulary Medication (Pravastatin Sodium) 40 mg PO DAILY [facility] Ondansetron HCl (Zofran Odt) 4 mg PO Q4H PRN PRN Reason: nausea, able to take PO Ondansetron HCl (Zofran) 4 mg IV Q4H PRN PRN Reason: Nausea/Vomiting Propranolol HCl (Inderal La) 80 mg PO DAILY [facility] Temazepam (Restoril) 7.5 mg PO BEDTIME PRN PRN Reason: Sleep Assessment/Plan Comment:: I/P: Acute: Afib w/ RVR * Palpitations, weakness, and fatigue this AM * Risk factors: HTN, prolapsed mitral valve, DM2, DIXIE, Obesity * No h/o heart dz--> Stress test on 06/24/16 negative, per pt had Coronary calcium scan which was WNL * EKG in ED--> 160bpm, Absent p wave * IV Cardizem * Metoprolol PRN * Lovenox BID; pt to decide between Warfarin or novel oral anticoagulant * Monitor on Telemetry * F/U with Supervisor [employer] Chronic: DM2 on Bydureon, Synjardy * Lost 70lb in the last year with exercise and mindful eating * A1C pending Pulmonary HTN HTN Prolapsed mitral valve HLD * Lipid panel pending * Per pt, h/o normal Ca test and stress test Hypothyroid * TSH WNL Depression Sleep Apnea on CPAP Morbid Obesity Plan: Transferred to ICU Other orders as indicated above Routine AM labs Heart Healthy and ADA diet Dietary and Diabetic consult DVT Prophylaxis/GI Prophylaxis Code Status: Full Code; PCP: Dr. Erwin
[2018-07-29] MEDS: Enoxaparin 150 MG/1 ML Syringe SUBCUT SCH (22:10)
[2018-07-30] MEDS: Temazepam 7.5 MG Cap PO PRN ×2 (00:24→21:19)
[2018-07-30] MEDS: Sodium Chloride 0.9% 1,000 ML IV SCH (05:49)
[2018-07-30] MEDS: Levothyroxine 25 MCG Tab PO SCH (06:01)
[2018-07-30 06:28] LABS: HEMOGLOBIN A1C 5.7 % (4.50-6.20)
[2018-07-30] MEDS: Insulin Lispro 100 Unit/ML 3 ML KwikPen SUBCUT SCH ×4 (06:59→21:57)
[2018-07-30] MEDS: Famotidine 20 MG Tab PO SCH ×2 (08:45→21:10)
[2018-07-30] MEDS: Simvastatin 20 MG Tab PO SCH (08:46)
[2018-07-30] MEDS ORDERED: METFORMIN HCL PO SCH (09:00)
[2018-07-30] MEDS ORDERED: Propranolol 80 MG Cap.ER PO SCH (09:00)
[2018-07-30] MEDS ORDERED: Losartan 100 MG Tab PO SCH (09:00)
[2018-07-30] MEDS ORDERED: EMPAGLIFLOZIN PO SCH (09:00)
[2018-07-30] MEDS: Potassium Chloride 20 MEQ Tab.ER PO SCH ×2 (09:30→21:09)
[2018-07-30] MEDS: Fenofibrate 54 MG Tab PO SCH (09:31)
[2018-07-30] MEDS: Enoxaparin 150 MG/1 ML Syringe SUBCUT SCH (09:32)
--- NOTE | 2018-07-30 14:01 | PCM.PN ---
- General Info Date of Service: 07/30/18 Functional Status: Reports: Pain Controlled, Tolerating Diet, Ambulating, Urinating - Review of Systems General: Reports: No Symptoms HEENT: Reports: No Symptoms Pulmonary: Reports: No Symptoms Cardiovascular: Reports: No Symptoms Gastrointestinal: Reports: No Symptoms Genitourinary: Reports: No Symptoms Musculoskeletal: Reports: No Symptoms Skin: Reports: No Symptoms Neurological: Reports: No Symptoms Psychiatric: Reports: No Symptoms - Patient Data Vitals - Most Recent: Last Vital Signs Temp 36.7 C 07/30/18 11:38 Pulse 76 07/30/18 11:38 Resp 15 07/30/18 11:38 BP 136/84 07/30/18 11:38 Pulse Ox 100 07/30/18 11:38 Weight - Most Recent: 166.151 kg I&O - Last 24 Hours: Intake & Output 07/29/18 07/30/18 07/30/18 22:59 06:59 14:59 Intake Total 625 2314 240 Output Total 1200 700 Balance -575 1614 240 Lab Results Last 24 Hours: Laboratory Results - last 24 hr 07/29/18 07/30/18 07/30/18 Range/Units 20:19 05:30 05:30 WBC (3.98-10.04) K/mm3 RBC (3.98-5.22) M/mm3 Hgb (11.2-15.7) gm/L Hct (34.1-44.9) % MCV (79.4-94.8) fl MCH (25.6-32.2) pg MCHC (32.2-35.5) g/dl RDW Std Deviation (36.4-46.3) fL Plt Count (182-369) K/mm3 MPV (9.4-12.3) fl Neut % (Auto) (34.0-71.1) % Lymph % (Auto) (19.3-51.7) % [place] % (Auto) (4.7-12.5) % Eos % (Auto) (0.7-5.8) Baso % (Auto) (0.1-1.2) % Neut # (Auto) (1.56-6.13) K/mm3 Lymph # (Auto) (1.18-3.74) K/mm3 [place] # (Auto) (0.24-0.36) K/mm3 Eos # (Auto) (0.04-0.36) K/mm3 Baso # (Auto) (0.01-0.08) K/mm3 Sodium 142 (136-145) mEq/L Potassium 3.6 (3.5-5.1) mEq/L Chloride 106 (98-107) mEq/L Carbon Dioxide 25 (21-32) mEq/L Anion Gap 14.6 (5-15) BUN 13 (7-18) mg/dL Creatinine 0.8 (0.55-1.02) mg/dL Est Cr Clr Drug Dosing 69.13 mL/min Estimated GFR (MDRD) > 60 (>60) mL/min BUN/Creatinine Ratio 16.3 (14-18) Glucose 91 (80-115) mg/dL POC Glucose 87 (80-115) mg/dL Hemoglobin A1c 5.70 (4.50-6.20) % Calcium 8.7 (8.5-10.1) mg/dL Magnesium 2.0 (1.8-2.4) mg/dl Triglycerides 101 (<150) mg/dL Cholesterol 139 (<200) mg/dL LDL Cholesterol Direct 79 (<100) mg/dL HDL Cholesterol 49.0 (40-59) mg/dL 07/30/18 07/30/18 Range/Units 05:30 11:00 WBC 7.30 (3.98-10.04) K/mm3 RBC 4.88 (3.98-5.22) M/mm3 Hgb 13.9 (11.2-15.7) gm/L Hct 42.4 (34.1-44.9) % MCV 86.9 (79.4-94.8) fl MCH 28.5 (25.6-32.2) pg MCHC 32.8 (32.2-35.5) g/dl RDW Std Deviation 45.9 (36.4-46.3) fL Plt Count 267 (182-369) K/mm3 MPV 11.4 (9.4-12.3) fl Neut % (Auto) 52.9 (34.0-71.1) % Lymph % (Auto) 36.6 (19.3-51.7) % [place] % (Auto) 7.5 (4.7-12.5) % Eos % (Auto) 2.3 (0.7-5.8) Baso % (Auto) 0.4 (0.1-1.2) % Neut # (Auto) 3.86 (1.56-6.13) K/mm3 Lymph # (Auto) 2.67 (1.18-3.74) K/mm3 [place] # (Auto) 0.55 H (0.24-0.36) K/mm3 Eos # (Auto) 0.17 (0.04-0.36) K/mm3 Baso # (Auto) 0.03 (0.01-0.08) K/mm3 Sodium (136-145) mEq/L Potassium (3.5-5.1) mEq/L Chloride (98-107) mEq/L Carbon Dioxide (21-32) mEq/L Anion Gap (5-15) BUN (7-18) mg/dL Creatinine (0.55-1.02) mg/dL Est Cr Clr Drug Dosing mL/min Estimated GFR (MDRD) (>60) mL/min BUN/Creatinine Ratio (14-18) Glucose (80-115) mg/dL POC Glucose 87 (80-115) mg/dL Hemoglobin A1c (4.50-6.20) % Calcium (8.5-10.1) mg/dL Magnesium (1.8-2.4) mg/dl Triglycerides (<150) mg/dL Cholesterol (<200) mg/dL LDL Cholesterol Direct (<100) mg/dL HDL Cholesterol (40-59) mg/dL Med Orders - Current: Current Medications Acetaminophen (Tylenol) 650 mg PO Q4H PRN PRN Reason: Pain (Mild 1-3)/fever Last Admin: 07/30/18 00:24 Dose: 650 mg Hydrocodone Bitart/Acetaminophen ([place] 325-5 Mg) 1 tab PO Q4H PRN PRN Reason: Pain (moderate 4-6) Enoxaparin Sodium (Lovenox) 150 mg SUBCUT Q12H [facility] Last Admin: 07/30/18 09:32 Dose: 150 mg Famotidine (Pepcid) 20 mg PO BID [facility] Last Admin: 07/30/18 08:45 Dose: 20 mg Fenofibrate (Fenofibrate) 135 mg PO DAILY [facility] Last Admin: 07/30/18 09:31 Dose: 135 mg Hydromorphone HCl (Dilaudid) 0.25 mg IVPUSH Q2H PRN PRN Reason: Pain (severe 7-10) Diltiazem HCl 125 mg/ Sodium (Chloride) 125 mls @ 5 mls/hr IV TITRATE [facility]; Protocol Last Titration: 07/30/18 03:02 Dose: 0 mg/hr, 0 mls/hr Sodium Chloride (Normal Saline) 1,000 mls @ 125 mls/hr IV ASDIRECTED [facility] Last Admin: 07/30/18 05:49 Dose: 125 mls/hr Imipramine HCl (Imipramine Hcl) 25 mg PO BEDTIME [facility] Insulin Human Lispro (Humalog) 0 unit SUBCUT QIDACANDBED [facility]; Protocol Last Admin: 07/30/18 11:05 Dose: Not Given Levothyroxine Sodium (Levothyroxine) 25 mcg PO ACBREAKFAST [facility] Last Admin: 07/30/18 06:01 Dose: 25 mcg Losartan Potassium (Cozaar) 100 mg PO DAILY [facility] Last Admin: 07/30/18 08:46 Dose: 100 mg Metoclopramide HCl (Reglan) 10 mg IV ONETIME PRN PRN Reason: Nausea/Vomiting Last Admin: 07/29/18 11:52 Dose: 10 mg Metoprolol Tartrate (Lopressor) 5 mg IVPUSH Q4H PRN PRN Reason: Tachycardia Ondansetron HCl (Zofran Odt) 4 mg PO Q4H PRN PRN Reason: nausea, able to take PO Ondansetron HCl (Zofran) 4 mg IV Q4H PRN PRN Reason: Nausea/Vomiting Empagliflozin/Metformin Hcl [ Synjardy 12.5-500 Mg Tablet] 0 each PO BIDMEALS [facility] Potassium Chloride (Klor-Con M20) 40 meq PO BID [facility] Stop: 07/31/18 09:01 Last Admin: 07/30/18 09:30 Dose: 40 meq Propranolol HCl (Inderal La) 80 mg PO DAILY [facility] Last Admin: 07/30/18 08:45 Dose: 80 mg Simvastatin (Zocor) 20 mg PO DAILY [facility] Last Admin: 07/30/18 08:46 Dose: 20 mg Temazepam (Restoril) 7.5 mg PO BEDTIME PRN PRN Reason: Sleep Last Admin: 07/30/18 00:24 Dose: 7.5 mg Discontinued Medications Citric Acid/Sodium Citrate (Bicitra Solution) 30 ml PO ONETIME ONE Stop: 07/29/18 11:38 Last Admin: 07/29/18 12:00 Dose: 30 ml Citric Acid/Sodium Citrate (Bicitra Solution) Confirm Administered Dose 30 ml .ROUTE .STK-MED ONE Stop: 07/29/18 12:01 Diltiazem HCl (Cardizem) 10 mg IVPUSH ONETIME STA Stop: 07/29/18 12:11 Last Admin: 07/29/18 12:19 Dose: 10 mg Diltiazem HCl (Cardizem) Confirm Administered Dose 50 mg .ROUTE .STK-MED ONE Stop: 07/29/18 12:12 Last Admin: 07/29/18 12:18 Dose: Not Given Enoxaparin Sodium (Lovenox) 150 mg SUBCUT ONETIME ONE Stop: 07/29/18 11:08 Last Admin: 07/29/18 11:32 Dose: 150 mg Famotidine (Pepcid) 20 mg IVPUSH ONETIME ONE Stop: 07/29/18 11:38 Last Admin: 07/29/18 11:52 Dose: 20 mg Fentanyl (Sublimaze) Confirm Administered Dose 100 mcg .ROUTE .STK-MED ONE Stop: 07/29/18 11:43 Lactated Ringer's (Ringers, Lactated) 1,000 mls @ 50 mls/hr IV ASDIRECTED [facility] Last Infusion: 07/29/18 10:43 Dose: 50 mls/hr Lactated Ringer's (Ringers, Lactated) 500 mls @ 999 mls/hr IV .BOLUS ONE Stop: 07/29/18 10:51 Last Admin: 07/29/18 11:35 Dose: Not Given Lidocaine HCl (Xylocaine-Mpf 1%) Confirm Administered Dose 6 mls @ as directed .ROUTE .STK-MED ONE Stop: 07/29/18 11:42 Sodium Chloride (Normal Saline) 1,000 mls @ 50 mls/hr IV ASDIRECTED [facility] Last Admin: 07/29/18 12:50 Dose: 50 mls/hr Sodium Chloride (Normal Saline) 500 mls @ 999 mls/hr IV .BOLUS ONE Stop: 07/29/18 20:42 Last Admin: 07/29/18 21:40 Dose: Not Given Metoprolol Tartrate (Lopressor) 5 mg IVPUSH ONETIME ONE Stop: 07/29/18 09:40 Last Admin: 07/29/18 10:05 Dose: 5 mg Metoprolol Tartrate (Lopressor) 5 mg IVPUSH ONETIME ONE Stop: 07/29/18 10:21 Last Admin: 07/29/18 10:46 Dose: 5 mg Midazolam HCl (Versed 1 Mg/Ml) Confirm Administered Dose 2 mg .ROUTE .STK-MED ONE Stop: 07/29/18 11:43 Empagliflozin/Metformin Hcl [ Synjardy 12.5-500 Mg Tablet] 0 each PO BID [facility] Last Admin: 07/30/18 08:47 Dose: Not Given Propofol (Diprivan 20 Ml) Confirm Administered Dose 200 mg .ROUTE .STK-MED ONE Stop: 07/29/18 11:43 - Exam Quality Assessment: DVT Prophylaxis General: Alert, Oriented, Cooperative, No Acute Distress HEENT: Pupils Equal, Pupils Reactive, EOMI Neck: Trachea Midline, No JVD Lungs: Clear to Auscultation, Normal Respiratory Effort Cardiovascular: Regular Rate, Regular Rhythm GI/Abdominal Exam: Normal Bowel Sounds, Soft, Non-Tender, No Organomegaly, No Distention (Female) Exam: Deferred Back Exam: Normal Inspection Extremities: Normal Inspection, Non-Tender, Normal Capillary Refill Skin: Warm Neurological: No New Focal Deficit, Normal Gait, Normal Speech Psy/Mental Status: Alert, Normal Affect, Normal Mood - Problem List Review Problem List Initiated/Reviewed/Updated: Yes - My Orders Last 24 Hours: My Active Orders 07/29/18 20:00 Sodium Chloride 0.9% [Normal Saline] 1,000 ml IV ASDIRECTED 07/29/18 Dinner Heart Healthy Diet [DIET] 07/30/18 03:06 EKG 12 Lead [EK] Routine 07/30/18 03:07 EKG Documentation Completion [RC] ASDIRECTED 07/30/18 09:30 Potassium Chloride [Klor-Con M20] 40 meq PO BID - Plan Plan:: I/P: Acute: Afib w/ RVR-->SR, [id number] (2.8/2.9%)-->start Xarelto * Palpitations, weakness, and fatigue this AM * Risk factors: HTN, prolapsed mitral valve, DM2, DIXIE, Obesity * No h/o heart dz--> Stress test on 06/24/16 negative, per pt had Coronary calcium scan which was WNL * EKG in ED--> 160bpm, Absent p wave * IV Cardizem * Metoprolol scheduled * Lovenox BID; pt to decide between Warfarin or novel oral anticoagulant * Monitor on Telemetry * F/U with Velvet Weaver Chronic: DM2 on Bydureon, Synjardy * Lost 70lb in the last year with exercise and mindful eating * A1C pending Pulmonary HTN HTN Prolapsed mitral valve HLD * Lipid panel pending * Per pt, h/o normal Ca test and stress test Hypothyroid * TSH WNL Depression Sleep Apnea on CPAP, home setting Morbid Obesity Plan: Transferred to ICU Other orders as indicated above Routine AM labs Heart Healthy and ADA diet Dietary and Diabetic consult DVT Prophylaxis/GI Prophylaxis Code Status: Full Code; PCP: Dr. Erwin
[2018-07-30] MEDS: METFORMIN HCL PO SCH (16:05)
[2018-07-30] MEDS: EMPAGLIFLOZIN PO SCH (16:05)
[2018-07-30] MEDS: Rivaroxaban 10 MG Tab PO SCH (19:21)
[2018-07-31] MEDS: Insulin Lispro 100 Unit/ML 3 ML KwikPen SUBCUT SCH ×2 (06:34→12:33)
[2018-07-31] MEDS: EMPAGLIFLOZIN PO SCH (06:37)
[2018-07-31] MEDS: Levothyroxine 25 MCG Tab PO SCH (06:37)
[2018-07-31] MEDS: METFORMIN HCL PO SCH (06:37)
[2018-07-31] MEDS ORDERED: Metoprolol Tartrate 25 MG Tab PO SCH (08:00)
[2018-07-31] MEDS ORDERED: Losartan 25 MG Tab PO SCH (09:00)
[2018-07-31 09:16] VITALS: BP 119/82
[2018-07-31] MEDS: Famotidine 20 MG Tab PO SCH (09:16)
[2018-07-31] MEDS: Rivaroxaban 10 MG Tab PO SCH (09:17)
[2018-07-31] MEDS: Potassium Chloride 20 MEQ Tab.ER PO SCH (09:17)
[2018-07-31] MEDS: Simvastatin 20 MG Tab PO SCH (09:18)
[2018-07-31] MEDS: Fenofibrate 54 MG Tab PO SCH (09:19)
--- NOTE | 2018-07-31 12:37 | PCM.DCSUM1 ---
Discharge Summary - Hospital Course Free Text/Narrative:: 62 year old female with palpitations had A fib with RVR for approximately 18 hours during admission. She had experienced SOB, lightheadedness DRIER OPERATOR HEAD. The patient may have had previous episodes. The patient was admitted to the [facility] and converted to SR on a Cardizem drip. She was started on Lopressor 25 mg BID and Xarelto. Prescriptions were provided at [place]. A 2 D echo had been performed last year and was not repeated. During her hospitalization, she wore her home CPAP. NOAC started based on CHADS2/[id number] score, 2. Primary Dx PAF A Fib with RVR HTN HLD DIXIE Meds Lopressor 25 mg BID Xarelto 20 mg daily Follow up PCP, 7-10 days HPI Initial Comments: HPI: This is a 62 yo female with past medical hx/o DM2, Pulmonary HTN, HTN, prolapsed mitral valve, HLD, Hypothyroid, Depression, Sleep Apnea on CPAP, Morbid Obesity who comes in for Afib with RVR. She c/o palpitations, weakness and fatigue. She denies F/C, JOHNSON, Dizziness, N/V/D, Chest pain, or Urinary/GI symptoms. Her symptoms improved after receiving Lopressor, Cardizem and Lovenox in the ED. Her initial workup in the ED shows a CBC remarkable for RBC 5.23, Lymph 56% . Coagulation studies show PT 10.9, INR 1, APTT 29. Her chemistry is remarkable for AGap 15.9, BNP 345. TSH WNL. EKG in ED shows 160bpm w/ absent p waves. She is subsequently admitted to the ICU. She is a Full Code. Her PCP is Dr. Mandy Miller. Diagnosis: Stroke: No - Discharge Data Discharge Date: 07/31/18 Discharge Disposition: Home, Self-Care 01 Condition: Good - Patient Summary/Data Consults: Consultations 07/29/18 21:59 Consult to Diabetic Nurse Specialist [CONS] Routine Consult to Principal Embedded Software Engineer [CONS] Routine Respiratory Care Assess and Treatment [CONS] Routine - Patient Instructions Diet: Usual Diet as Tolerated Activity: As Tolerated Driving: May Drive Today Showering/Bathing: May Shower Notify Provider of: Fever, Increased Pain, Nausea and/or Vomiting - Discharge Plan *PRESCRIPTION DRUG MONITORING PROGRAM REVIEWED*: Not Applicable *COPY OF PRESCRIPTION DRUG MONITORING REPORT IN PATIENT MILLER: Not Applicable Prescriptions/Med Rec: Metoprolol Tartrate [Lopressor] 25 mg PO Q12H #60 tablet Rivaroxaban [Xarelto] 20 mg PO DAILY #30 tablet Home Medications: Home Meds Empagliflozin/Metformin HCl [Synjardy 12.5-500 mg Tablet] 1 tab PO BID 07/29/18 [History] Exenatide Microspheres [Bydureon Pen] 2 mg SUBCUT WEEKLY 07/29/18 [History] Fenofibrate,Micronized [Fenofibrate] 134 mg PO DAILY 07/29/18 [History] Imipramine HCl [Imipramine] 25 mg PO BEDTIME 07/29/18 [History] Levothyroxine 25 mcg PO DAILY 07/29/18 [History] Pravastatin Sodium [Pravastatin (Pravachol)] 40 mg PO DAILY 07/29/18 [History] Valsartan 160 mg PO DAILY 07/29/18 [History] Metoprolol Tartrate [Lopressor] 25 mg PO Q12H #60 tablet 07/31/18 [Rx] Rivaroxaban [Xarelto] 20 mg PO DAILY #30 tablet 07/31/18 [Rx] Oxygen Therapy Mode: Room Air Patient Handouts: Atrial Fibrillation, [id number] Forms: ED Department Discharge Referrals: Angel Luis Howard MD [Primary Care Provider] - - Discharge Summary/Plan Comment DC Time >30 min.: No Discharge Summary/Plan Comment: I/P: Acute: Afib w/ RVR-->SR, [id number] (2.8/2.9%)-->start Xarelto * Palpitations, weakness, and fatigue this AM * Risk factors: HTN, prolapsed mitral valve, DM2, DIXIE, Obesity * No h/o heart dz--> Stress test on 06/24/16 negative, per pt had Coronary calcium scan which was WNL * EKG in ED--> 160bpm, Absent p wave * IV Cardizem * Metoprolol scheduled, prescription provided at [place]; Inderal stopped. * Lovenox BID; pt to decide between Warfarin or novel oral anticoagulant * Monitor on Telemetry * F/U with [facility] Chronic: DM2 on Bydureon, Synjardy * Lost 70lb in the last year with exercise and mindful eating * A1C pending Pulmonary HTN HTN Prolapsed mitral valve HLD * Lipid panel pending * Per pt, h/o normal Ca test and stress test Hypothyroid * TSH WNL Depression Sleep Apnea on CPAP, home setting Morbid Obesity Plan: Other orders as indicated above Routine AM labs Heart Healthy and ADA diet Dietary and Diabetic consult DVT Prophylaxis/GI Prophylaxis Code Status: Full Code; PCP: Dr. Erwin - General Info Date of Service: 07/29/18 Functional Status: Reports: Pain Controlled, Tolerating Diet, Ambulating, Urinating - Review of Systems General: Reports: No Symptoms HEENT: Reports: No Symptoms Pulmonary: Reports: No Symptoms Cardiovascular: Reports: No Symptoms Gastrointestinal: Reports: No Symptoms Genitourinary: Reports: No Symptoms Musculoskeletal: Reports: No Symptoms Skin: Reports: No Symptoms Neurological: Reports: No Symptoms Psychiatric: Reports: No Symptoms - Patient Data Vitals - Most Recent: Last Vital Signs Temp 36.7 C 07/31/18 08:00 Pulse 76 07/31/18 09:16 Resp 15 07/31/18 08:00 BP 119/82 07/31/18 09:18 Pulse Ox 100 07/31/18 08:00 Weight - Most Recent: 166.65 kg I&O - Last 24 hours: Intake & Output 07/30/18 07/31/18 07/31/18 22:59 06:59 14:59 Intake Total 2960 500 360 Output Total 1200 Balance 1760 500 360 Lab Results - Last 24 hrs: Laboratory Results - last 24 hr 07/30/18 07/30/18 07/31/18 Range/Units 16:11 21:05 05:25 WBC 5.66 (3.98-10.04) K/mm3 RBC 4.78 (3.98-5.22) M/mm3 Hgb 13.5 (11.2-15.7) gm/L Hct 41.2 (34.1-44.9) % MCV 86.2 (79.4-94.8) fl MCH 28.2 (25.6-32.2) pg MCHC 32.8 (32.2-35.5) g/dl RDW Std Deviation 44.4 (36.4-46.3) fL Plt Count 248 (182-369) K/mm3 MPV 11.0 (9.4-12.3) fl Neut % (Auto) 56.2 (34.0-71.1) % Lymph % (Auto) 32.7 (19.3-51.7) % [place] % (Auto) 8.5 (4.7-12.5) % Eos % (Auto) 1.9 (0.7-5.8) Baso % (Auto) 0.5 (0.1-1.2) % Neut # (Auto) 3.18 (1.56-6.13) K/mm3 Lymph # (Auto) 1.85 (1.18-3.74) K/mm3 [place] # (Auto) 0.48 H (0.24-0.36) K/mm3 Eos # (Auto) 0.11 (0.04-0.36) K/mm3 Baso # (Auto) 0.03 (0.01-0.08) K/mm3 Sodium (136-145) mEq/L Potassium (3.5-5.1) mEq/L Chloride (98-107) mEq/L Carbon Dioxide (21-32) mEq/L Anion Gap (5-15) BUN (7-18) mg/dL Creatinine (0.55-1.02) mg/dL Est Cr Clr Drug Dosing mL/min Estimated GFR (MDRD) (>60) mL/min BUN/Creatinine Ratio (14-18) Glucose (80-115) mg/dL POC Glucose 100 97 (80-115) mg/dL Calcium (8.5-10.1) mg/dL Magnesium (1.8-2.4) mg/dl 07/31/18 Range/Units 05:25 WBC (3.98-10.04) K/mm3 RBC (3.98-5.22) M/mm3 Hgb (11.2-15.7) gm/L Hct (34.1-44.9) % MCV (79.4-94.8) fl MCH (25.6-32.2) pg MCHC (32.2-35.5) g/dl RDW Std Deviation (36.4-46.3) fL Plt Count (182-369) K/mm3 MPV (9.4-12.3) fl Neut % (Auto) (34.0-71.1) % Lymph % (Auto) (19.3-51.7) % [place] % (Auto) (4.7-12.5) % Eos % (Auto) (0.7-5.8) Baso % (Auto) (0.1-1.2) % Neut # (Auto) (1.56-6.13) K/mm3 Lymph # (Auto) (1.18-3.74) K/mm3 [place] # (Auto) (0.24-0.36) K/mm3 Eos # (Auto) (0.04-0.36) K/mm3 Baso # (Auto) (0.01-0.08) K/mm3 Sodium 140 (136-145) mEq/L Potassium 3.9 (3.5-5.1) mEq/L Chloride 106 (98-107) mEq/L Carbon Dioxide 24 (21-32) mEq/L Anion Gap 13.9 (5-15) BUN 12 (7-18) mg/dL Creatinine 0.7 (0.55-1.02) mg/dL Est Cr Clr Drug Dosing 79.01 mL/min Estimated GFR (MDRD) > 60 (>60) mL/min BUN/Creatinine Ratio 17.1 (14-18) Glucose 93 (80-115) mg/dL POC Glucose (80-115) mg/dL Calcium 9.0 (8.5-10.1) mg/dL Magnesium 2.0 (1.8-2.4) mg/dl Med Orders - Current: Current Medications Acetaminophen (Tylenol) 650 mg PO Q4H PRN PRN Reason: Pain (Mild 1-3)/fever Last Admin: 07/30/18 00:24 Dose: 650 mg Hydrocodone Bitart/Acetaminophen ([place] 325-5 Mg) 1 tab PO Q4H PRN PRN Reason: Pain (moderate 4-6) Famotidine (Pepcid) 20 mg PO BID [facility] Last Admin: 07/31/18 09:16 Dose: 20 mg Fenofibrate (Fenofibrate) 135 mg PO DAILY [facility] Last Admin: 07/31/18 09:19 Dose: Not Given Hydromorphone HCl (Dilaudid) 0.25 mg IVPUSH Q2H PRN PRN Reason: Pain (severe 7-10) Imipramine HCl (Imipramine Hcl) 25 mg PO BEDTIME [facility] Last Admin: 07/30/18 21:10 Dose: 25 mg Insulin Human Lispro (Humalog) 0 unit SUBCUT QIDACANDBED [facility]; Protocol Last Admin: 07/31/18 12:33 Dose: Not Given Levothyroxine Sodium (Levothyroxine) 25 mcg PO ACBREAKFAST [facility] Last Admin: 07/31/18 06:37 Dose: 25 mcg Losartan Potassium (Cozaar) 50 mg PO DAILY [facility] Last Admin: 07/31/18 09:18 Dose: 50 mg Metoclopramide HCl (Reglan) 10 mg IV ONETIME PRN PRN Reason: Nausea/Vomiting Last Admin: 07/29/18 11:52 Dose: 10 mg Metoprolol Tartrate (Lopressor) 5 mg IVPUSH Q4H PRN PRN Reason: Tachycardia Metoprolol Tartrate (Lopressor) 25 mg PO Q12H [facility] Last Admin: 07/31/18 09:16 Dose: 25 mg Ondansetron HCl (Zofran Odt) 4 mg PO Q4H PRN PRN Reason: nausea, able to take PO Ondansetron HCl (Zofran) 4 mg IV Q4H PRN PRN Reason: Nausea/Vomiting Empagliflozin/Metformin Hcl [ Synjardy 12.5-500 Mg Tablet] 0 each PO BIDMEALS [facility] Last Admin: 07/31/18 06:37 Dose: 1 each Rivaroxaban (Xarelto) 20 mg PO DAILY [facility] Last Admin: 07/31/18 09:17 Dose: 20 mg Simvastatin (Zocor) 20 mg PO DAILY [facility] Last Admin: 07/31/18 09:18 Dose: 20 mg Temazepam (Restoril) 7.5 mg PO BEDTIME PRN PRN Reason: Sleep Last Admin: 07/30/18 21:19 Dose: 7.5 mg Discontinued Medications Citric Acid/Sodium Citrate (Bicitra Solution) 30 ml PO ONETIME ONE Stop: 07/29/18 11:38 Last Admin: 07/29/18 12:00 Dose: 30 ml Citric Acid/Sodium Citrate (Bicitra Solution) Confirm Administered Dose 30 ml .ROUTE .STK-MED ONE Stop: 07/29/18 12:01 Diltiazem HCl (Cardizem) 10 mg IVPUSH ONETIME [facility] Stop: 07/29/18 12:11 Last Admin: 07/29/18 12:19 Dose: 10 mg Diltiazem HCl (Cardizem) Confirm Administered Dose 50 mg .ROUTE .STK-MED ONE Stop: 07/29/18 12:12 Last Admin: 07/29/18 12:18 Dose: Not Given Enoxaparin Sodium (Lovenox) 150 mg SUBCUT ONETIME ONE Stop: 07/29/18 11:08 Last Admin: 07/29/18 11:32 Dose: 150 mg Enoxaparin Sodium (Lovenox) 150 mg SUBCUT Q12H [facility] Last Admin: 07/30/18 09:32 Dose: 150 mg Famotidine (Pepcid) 20 mg IVPUSH ONETIME ONE Stop: 07/29/18 11:38 Last Admin: 07/29/18 11:52 Dose: 20 mg Fentanyl (Sublimaze) Confirm Administered Dose 100 mcg .ROUTE .K-MED ONE Stop: 07/29/18 11:43 Lactated Ringer's (Ringers, Lactated) 1,000 mls @ 50 mls/hr IV ASDIRECTED [facility] Last Infusion: 07/29/18 10:43 Dose: 50 mls/hr Lactated Ringer's (Ringers, Lactated) 500 mls @ 999 mls/hr IV .BOLUS ONE Stop: 07/29/18 10:51 Last Admin: 07/29/18 11:35 Dose: Not Given Lidocaine HCl (Xylocaine-Mpf 1%) Confirm Administered Dose 6 mls @ as directed .ROUTE .[facility]-MED ONE Stop: 07/29/18 11:42 Diltiazem HCl 125 mg/ Sodium (Chloride) 125 mls @ 5 mls/hr IV TITRATE [facility]; Protocol Last Titration: 07/30/18 03:02 Dose: 0 mg/hr, 0 mls/hr Sodium Chloride (Normal Saline) 1,000 mls @ 50 mls/hr IV ASDIRECTED [facility] Last Admin: 07/29/18 12:50 Dose: 50 mls/hr Sodium Chloride (Normal Saline) 500 mls @ 999 mls/hr IV .BOLUS ONE Stop: 07/29/18 20:42 Last Admin: 07/29/18 21:40 Dose: Not Given Sodium Chloride (Normal Saline) 1,000 mls @ 125 mls/hr IV ASDIRECTED [facility] Last Admin: 07/30/18 05:49 Dose: 125 mls/hr Losartan Potassium (Cozaar) 100 mg PO DAILY [facility] Last Admin: 07/30/18 08:46 Dose: 100 mg Metoprolol Tartrate (Lopressor) 5 mg IVPUSH ONETIME ONE Stop: 07/29/18 09:40 Last Admin: 07/29/18 10:05 Dose: 5 mg Metoprolol Tartrate (Lopressor) 5 mg IVPUSH ONETIME ONE Stop: 07/29/18 10:21 Last Admin: 07/29/18 10:46 Dose: 5 mg Midazolam HCl (Versed 1 Mg/Ml) Confirm Administered Dose 2 mg .ROUTE .STK-MED ONE Stop: 07/29/18 11:43 Empagliflozin/Metformin Hcl [ Synjardy 12.5-500 Mg Tablet] 0 each PO BID [facility] Last Admin: 07/30/18 08:47 Dose: Not Given Potassium Chloride (Klor-Con M20) 40 meq PO BID [facility] Stop: 07/31/18 09:01 Last Admin: 07/31/18 09:17 Dose: 40 meq Propofol (Diprivan 20 Ml) Confirm Administered Dose 200 mg .ROUTE .STK-MED ONE Stop: 07/29/18 11:43 Propranolol HCl (Inderal La) 80 mg PO DAILY [facility] Last Admin: 07/30/18 08:45 Dose: 80 mg - Exam Quality Assessment: Reports: DVT Prophylaxis General: Reports: Alert, Oriented, Cooperative, No Acute Distress HEENT: Reports: Pupils Equal, Pupils Reactive, EOMI Neck: Reports: Trachea Midline, No JVD Lungs: Reports: Normal Respiratory Effort Cardiovascular: Reports: Regular Rate, Regular Rhythm GI/Abdominal Exam: Normal Bowel Sounds, Soft, Non-Tender, No Organomegaly, No Distention (Female) Exam: Deferred Rectal (Female) Exam: Deferred Back Exam: Reports: Normal Inspection Extremities: Normal Inspection, Non-Tender, Normal Capillary Refill Skin: Reports: Warm Neurological: Reports: No New Focal Deficit, Normal Gait, Normal Speech Psy/Mental Status: Reports: Alert, Normal Affect, Normal Mood
== END 2018-07-31 13:17 | disposition home or self-care (01) | DRG 309 ==
LOC: JD.ED 09:21 → JD.ICU 14:47
PROVIDERS: ADMIT Internal Medicine Cardiovascular Disease; ATTEND Internal Medicine Cardiovascular Disease
DX: I48.0 Paroxysmal atrial fibrillation (principal); Z68.43 Body mass index [BMI] 50.0-59.9, adult; I10 Essential (primary) hypertension; E78.5 Hyperlipidemia, unspecified; G47.33 Obstructive sleep apnea (adult) (pediatric); E11.9 Type 2 diabetes mellitus without complications; I27.20 Pulmonary hypertension, unspecified; E03.9 Hypothyroidism, unspecified; E88.81 Metabolic syndrome and other insulin resistance; F32.9 Major depressive disorder, single episode, unspecified; E66.01 Morbid (severe) obesity due to excess calories; I34.1 Nonrheumatic mitral (valve) prolapse; Z79.84 Long term (current) use of oral hypoglycemic drugs; Z79.899 Other long term (current) drug therapy
CPT/HCPCS: 36415; 71045; 71045-26; 80048; 80053; 80061; 82962; 83036; 83735; 83880; 84443; 84484; 85007; 85025; 85027; 85610; 85730; 93005; 93010; 94762; 96361; 96365; 96366; 96372; 96375; 96376; 99284; 99285-25; A9270-GY; J1650; J2001; J2250; J2704; J2765; J3010; J3490; J7030; J7040; J7120

== ENCOUNTER 2020-01-03 10:23 | Emergency (ER) | payer OTHER ==
[2020-01-03 10:41] VITALS: BP 108/58; PULSE 56
[2020-01-03] MEDS ORDERED: Acetaminophen 325 MG Tab PO ONE (11:05)
--- NOTE | 2020-01-03 11:05 | EDM.PDOC ---
ED HPI GENERAL MEDICAL PROBLEM - General Chief Complaint: Lower Extremity Injury/Pain Stated Complaint: HEAD AND KNEE INJURY/FALL Time Seen by Provider: 01/03/20 10:58 Source of Information: Reports: Patient History Limitations: Reports: No Limitations - History of Present Illness INITIAL COMMENTS - FREE TEXT/NARRATIVE: Patient is a 64-year-old female who presents to the emergency department with complaints of a generalized headache and left knee pain after falling last night. She states she tripped on the carpet and hit the right side of her forehead on the wall. She also hurt her left knee. Patient is on Eliquis for A. fib. States she went to Occupational Therapy this morning, they recommended that she come to the ER for evaluation. She denies any vision changes, loss of consciousness, nausea, or vomiting. She has been able to ambulate since the injury, however states the left knee is painful. Treatments ICT SALES ASSISTANT: Reports: Other (see below) Other Treatments ICT SALES ASSISTANT: hydrocodone - Related Data Allergies Allergy/AdvReac Type Severity Reaction Status Date / Time No Known Allergies Allergy Verified 01/20/19 23:08 Home Meds: Home Meds Exenatide Microspheres [Bydureon Pen] 2 mg SUBCUT WEEKLY 07/29/18 [History] Fenofibrate,Micronized [Fenofibrate] 134 mg PO DAILY 07/29/18 [History] Pravastatin Sodium [Pravastatin (Pravachol)] 40 mg PO DAILY 07/29/18 [History] Valsartan 160 mg PO DAILY 07/29/18 [History] Apixaban [Eliquis] 5 mg PO BID 01/20/19 [History] Empagliflozin [Jardiance] 25 mg PO DAILY 01/20/19 [History] Topiramate [Topamax] 25 mg PO BID 01/20/19 [History] Vortioxetine [Trintellix] 20 mg PO DAILY 01/20/19 [History] Flecainide [Tambocor] 100 mg PO BID #60 tablet 01/26/19 [Rx] Levothyroxine 25 mcg PO ACBREAKFAST #30 tablet 01/26/19 [Rx] Levothyroxine [Synthroid] 50 mcg PO ACBREAKFAST #30 tablet 01/26/19 [Rx] Metoprolol Tartrate [Lopressor] 75 mg PO Q8H #135 tablet 01/26/19 [Rx] Past Medical History Cardiovascular History: Reports: Afib, Hypertension Respiratory History: Reports: Sleep Apnea, Other (See Below) Other Respiratory History: pulmonary hypertension, cpap at night Gastrointestinal History: Reports: Other (See Below) Other Gastrointestinal History: obesity Neurological History: Reports: Other (See Below) Other Neuro History: previous head injury Psychiatric History: Reports: Depression, Other (See Below) 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 Endocrine/Metabolic History: Reports: Diabetes, Type II, Hypothyroidism, Other ( See Below) Other Endocrine/Metabolic History: metabolic syndrome, vitamin d deficiency - Past Surgical History HEENT Surgical History: Reports: Tonsillectomy Female Surgical History: Reports: Other (See Below) 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 Denies: Blurred Vision, Vision Change Ears: Denies: Dizziness Nose: Reports: No Symptoms Mouth/Throat: Reports: No Symptoms Respiratory: Reports: No Symptoms Cardiovascular: Reports: No Symptoms. Denies: Chest Pain, Lightheadedness GI/Abdominal: Reports: No Symptoms. Denies: Nausea, Vomiting Genitourinary: Reports: No Symptoms Musculoskeletal: Reports: Other (Left knee pain) Skin: Reports: No Symptoms Neurological: Reports: Headache. Denies: Confusion, Dizziness Psychiatric: Reports: No Symptoms ED EXAM, GENERAL - Physical Exam Exam: See Below Exam Limited By: No Limitations General Appearance: Alert, WD/WN, No Apparent Distress Head: Normocephalic, Other (Faint abrasion to the right medial forehead. No swelling or ecchymosis noted.) Respiratory/Chest: No Respiratory Distress, Lungs Clear, Normal Breath Sounds, No Accessory Muscle Use, Chest Non-Tender Cardiovascular: Normal Peripheral Pulses, Regular Rate, Rhythm, No Edema, No Gallop, No JVD, No Murmur, No Rub Extremities: Other (Ecchymosis and edema to the medial aspect of the left knee. Patient does have full range of motion.) Neurological: Alert, Oriented, CN II-XII Intact, Normal Cognition, Normal Gait, Normal Reflexes, No Motor/Sensory Deficits Psychiatric: Normal Affect, Normal Mood Skin Exam: Warm, Dry, Intact, Normal Color, No Rash Course - Vital Signs Last Recorded V/S: Last Vital Signs Temp 97.8 F 01/03/20 10:37 Pulse 56 L 01/03/20 10:37 Resp 16 01/03/20 10:37 BP 108/58 L 01/03/20 10:37 Pulse Ox 98 01/03/20 10:37 - Orders/Labs/Meds Orders: Active Orders 24 hr Category Date Time Status Knee Min 4V Lt [CR] Stat Exams 01/03/20 11:04 Taken Meds: Medications Discontinued Medications Generic Name Dose Route Start Last Admin Trade Name Jonathan PRN Reason Stop Dose Admin Acetaminophen 975 mg 01/03/20 11:05 01/03/20 11:30 Tylenol PO 01/03/20 11:06 975 mg NOW ONE Administration - Re-Assessments/Exams Free Text/Narrative Re-Assessment/Exam: 01/03/20 12:[address] was negative for any acute abnormalities. X-ray of the left knee show degenerative changes but no signs of fracture. Hakeem wrap was applied to her left knee. Recommend ice and elevation. Discharge instructions as documented. Departure - Departure Time of Disposition: 12:04 Disposition: Home, Self-Care 01 Condition: Good Clinical Impression: Head injury without concussion or intracranial hemorrhage Qualifiers: Encounter type: initial encounter Qualified Code(s): S09.90XA - Unspecified injury of head, initial encounter Knee pain, left Qualifiers: Chronicity: acute Qualified Code(s): M25.562 - Pain in left knee - Discharge Information *PRESCRIPTION DRUG MONITORING PROGRAM REVIEWED*: No *COPY OF PRESCRIPTION DRUG MONITORING REPORT IN PATIENT MILLER: No Referrals: Angel Luis Howard MD [Primary Care Provider] - Forms: ED Department Discharge Additional Instructions: You were seen in the emergency department for a headache and pain to her left knee after falling last evening. A CT scan of your head and an x-ray of your left knee was completed and these were found to be normal. An Hakeem wrap has been applied to your left knee. Use this as needed for comfort. Recommend that you ice and elevate the extremity when at rest. You may use over-the- counter Tylenol as needed for any discomfort. If you are still experiencing significant pain after about 1 week, I would recommend that you follow-up with your primary care provider. Return to the ER as needed. Sepsis Event Note (ED) - Evaluation Sepsis Screening Result: No Definite Risk - Focused Exam Vital Signs: Vital Signs Temp Pulse Resp BP Pulse Ox 01/03/20 10:37 97.8 F 56 L 16 108/58 L 98 - My Orders Last 24 Hours: My Active Orders 01/03/20 11:04 Knee Min 4V Lt [CR] Stat - Assessment/Plan Last 24 Hours: My Active Orders 01/03/20 11:04 Knee Min 4V Lt [CR] Stat
--- NOTE | 2020-01-03 11:29 | CT ---
Head CT Technique: Multiple axial sections through the brain were obtained. Intravenous contrast was not utilized. Comparison: No prior head CT study, previous mri brain of 02/27/16 is available. Findings: Ventricles appear within normal limits. Sulci over the frontal regions and over the convexities are mildly prominent. No abnormal parenchymal densities are seen. No evidence of intracranial hemorrhage. No midline shift or mass-effect is seen. Bone window settings were reviewed. No acute calvarial finding is seen. Visualized mastoid sinuses and visualized paranasal sinuses show nothing acute. Impression: 1. Mild cortical atrophy as described above. 2. No acute intracranial abnormality is identified. Diagnostic code #2 This report was dictated in MDT
--- NOTE | 2020-01-04 09:21 | CR ---
Left knee: 4 views left knee were obtained. Comparison: No previous knee exam. Slight osteophytes are noted off the medial and lateral knees. Mild medial joint space narrowing is seen. Patellofemoral joint not seen well in profile. No joint effusion is seen. No acute fracture or dislocation is seen. Impression: 1. Degenerative change. 2. Nothing acute is seen on left knee exam. Diagnostic code #2 This report was dictated in MDT
== END 2020-01-03 12:19 | disposition home or self-care (01) ==
LOC: JD.ED 10:23
DX: S80.02XA Contusion of left knee, initial encounter (principal); S00.81XA Abrasion of other part of head, initial encounter; I48.91 Unspecified atrial fibrillation; I10 Essential (primary) hypertension; E66.9 Obesity, unspecified; F32.9 Major depressive disorder, single episode, unspecified; E11.9 Type 2 diabetes mellitus without complications; E03.9 Hypothyroidism, unspecified; Z68.43 Body mass index [BMI] 50.0-59.9, adult; Z79.01 Long term (current) use of anticoagulants; Z79.899 Other long term (current) drug therapy; W01.0XXA Fall on same level from slipping, tripping and stumbling without subsequent striking against object, initial encounter
CPT/HCPCS: 70450; 73564; 99284; A9270; 99282

== ENCOUNTER 2021-06-30 09:41 | Emergency (ER) | payer OTHER ==
[2021-06-30] MEDS ORDERED: Sodium Chloride 0.9% 10 ML Syringe FLUSH PRN (10:06)
[2021-06-30] MEDS ORDERED: Atropine 0.1 MG/ML 10 ML Syringe ONE (10:09)
--- NOTE | 2021-06-30 10:17 | EDM.PDOC ---
ED HPI GENERAL MEDICAL PROBLEM - General Chief Complaint: Cardiovascular Problem Stated Complaint: HEART RATE SLOWER Time Seen by Provider: 06/30/21 09:45 Source of Information: Reports: Patient, RN History Limitations: Reports: No Limitations - History of Present Illness INITIAL COMMENTS - FREE TEXT/NARRATIVE: Mrs. Gusman is a very pleasant 65-year-old woman who now presents to the ED stating that she experienced a few episodes of feeling dyspneic and lightheaded over the weekend, however, she did not think to check her heart rate, since her last episode of atrial fibrillation was about 2 years ago. When her symptoms recurred again this morning, however, she checked her heart rate, finding it to be 48 bpm. She rechecked it about 15 minutes later, finding it to be 41, then again about 15 minutes later, finding it to be 36. During that time, her dyspnea was worsening, and she had some chest pressure, therefore she decided to come to the ED. It is my understanding that the patient drove herself. The patient has a history of paroxysmal atrial fibrillation, on metoprolol and flecainide, both taken twice a day. She states that she has been compliant with them, including taking them both this morning. Here in the ED, the patient's initial BP was found to be depressed at 87/68, with bradycardia of 37 bpm. She is afebrile, saturating 96% on room air. Dannie pite her vital signs, she appears to be comfortable, in no acute distress. Prior to this past weekend, the patient denies having a recent fever, chills, sore throat, ear pain, nasal or sinus congestion, cough, dyspnea, chest pain, palpitations, nausea, vomiting, constipation, diarrhea, abdominal pain, urinary symptoms, recent weight gain or weight loss, recent bloody bowel movements or black bowel movements, recent joint aches, headaches, or rashes. I reviewed the PMHx/PSHx/SocHx, which was reviewed with the patient by the RN. The patient's PCP is Dr. Angel Luis Erwin. Her Board Certified Orthodontist is Dr. Nicholas Peralta. She has received 2 COVID vaccinations plus a booster, as well as an influenza vaccination this season. Chest Pain Score (Numeric/FACES): 2 - Related Data Allergies Allergy/AdvReac Type Severity Reaction Status Date / Time No Known Allergies Allergy Verified 06/30/21 10:34 Home Meds: Home Meds Exenatide Microspheres [Bydureon Pen] 2 mg SUBCUT WEEKLY 07/29/18 [History] Fenofibrate,Micronized [Fenofibrate] 134 mg PO DAILY 07/29/18 [History] Pravastatin Sodium [Pravastatin (Pravachol)] 40 mg PO DAILY 07/29/18 [History] Apixaban [Eliquis] 5 mg PO BID 01/20/19 [History] Empagliflozin [Jardiance] 25 mg PO DAILY 01/20/19 [History] Flecainide [Tambocor] 150 mg PO BID 06/30/21 [History] Levothyroxine 25 mg PO DAILY 06/30/21 [History] Metoprolol Tartrate [Lopressor] 25 mg PO BID 06/30/21 [History] Topiramate 75 mg PO BID 06/30/21 [History] Valsartan 80 mg PO DAILY 06/30/21 [History] Vortioxetine Hydrobromide [Brintellix] 20 mg PO DAILY 06/30/21 [History] Past Medical History Cardiovascular History: Reports: Afib (paroxysmal), Hypertension Respiratory History: Reports: Sleep Apnea, Other (See Below) Other Respiratory History: pulmonary hypertension, cpap at night Gastrointestinal History: Reports: Other (See Below) Other Gastrointestinal History: obesity Neurological History: Reports: Other (See Below) Other Neuro History: previous head injury Psychiatric History: Reports: Depression, Other (See Below) 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 Endocrine/Metabolic History: Reports: Diabetes, Type II, Hypothyroidism, Other (See Below) Other Endocrine/Metabolic History: metabolic syndrome, vitamin d deficiency - Infectious Disease History Infectious Disease History: Reports: Novel Coronavirus (dx'd May 2020) - Past Surgical History HEENT Surgical History: Reports: Tonsillectomy Female Surgical History: Reports: Other (See Below) 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 ED EXAM, GENERAL - Physical Exam Exam: See Below Exam Limited By: No Limitations General Appearance: Alert, WD/WN, No Apparent Distress Eye Exam: Bilateral Eye: EOMI, Normal Inspection Ears: Normal External Exam, Hearing Grossly Normal Nose: Normal Inspection Throat/Mouth: Normal Inspection, Normal Lips, Normal Voice, No Airway Compromise Head: Atraumatic, Normocephalic Neck: Normal Inspection, Full Range of Motion Respiratory/Chest: No Respiratory Distress, Lungs Clear, Normal Breath Sounds, No Accessory Muscle Use Cardiovascular: Normal Peripheral Pulses, No Gallop, No JVD, No Murmur, No Rub, Bradycardia (regular) Peripheral Pulses: 3+: Radial (L), Radial (R) GI/Abdominal: Normal Bowel Sounds, Soft, Non-Tender, No Organomegaly, No Distention, No Abnormal Bruit, No Mass Back Exam: Normal Inspection, Full Range of Motion, NT Extremities: Normal Inspection, Normal Range of Motion, Normal Capillary Refill Neurological: Alert, Oriented, Normal Cognition, No Motor/Sensory Deficits Psychiatric: Normal Affect Skin Exam: Warm, Dry, Intact, Normal Color, No Rash #1 Interpretation EKG Date: 06/30/21 Time: 09:57 Rhythm: Other (Sinus bradycardia) Rate (Beats/Min): 37 [place]: Normal P-Wave: Present QRS: Normal ST-T: Normal QT: Normal Comparison: Change From Previous EKG (Was in [facility] 01/26/2019) Course - Vital Signs Last Recorded V/S: Last Vital Signs Temp 35.6 C L 06/30/21 10:03 Pulse 50 L 06/30/21 16:10 Resp 19 06/30/21 16:10 BP 128/82 06/30/21 16:10 Pulse Ox 98 06/30/21 16:10 - Orders/Labs/Meds Orders: Active Orders 24 hr Category Date Time Status Peripheral IV Insertion Adult [OM.PC] Stat Oth 06/30/21 10:06 Ordered Labs: Laboratory Tests 06/30/21 06/30/21 06/30/21 Range/Units 10:15 10:15 10:15 WBC 6.84 (3.98-10.04) K/mm3 RBC 4.33 (3.98-5.22) M/mm3 Hgb 12.8 (11.2-15.7) gm/dl Hct 40.1 (34.1-44.9) % MCV 92.6 (79.4-94.8) fl MCH 29.6 (25.6-32.2) pg MCHC 31.9 L (32.2-35.5) g/dl RDW Std Deviation 47.2 H (36.4-46.3) fL Plt Count 267 (182-369) K/mm3 MPV 11.1 (9.4-12.3) fl Neut % (Auto) 53.5 (34.0-71.1) % Lymph % (Auto) 34.2 (19.3-51.7) % [place] % (Auto) 8.2 (4.7-12.5) % Eos % (Auto) 3.2 (0.7-5.8) Baso % (Auto) 0.6 (0.1-1.2) % Neut # (Auto) 3.66 (1.56-6.13) K/mm3 Lymph # (Auto) 2.34 (1.18-3.74) K/mm3 [place] # (Auto) 0.56 H (0.24-0.36) K/mm3 Eos # (Auto) 0.22 (0.04-0.36) K/mm3 Baso # (Auto) 0.04 (0.01-0.08) K/mm3 PT 11.9 (9.7-12.0) SECONDS INR 1.08 D-Dimer, Quantitative 0.30 (0.19-0.50) mg/L Sodium 143 (136-145) mEq/L Potassium 4.3 (3.5-5.1) mEq/L Chloride 107 (98-107) mEq/L Carbon Dioxide 27 (21-32) mEq/L Anion Gap 13.3 (5-15) BUN 20 H (7-18) mg/dL Creatinine 1.1 H (0.55-1.02) mg/dL Est Cr Clr Drug Dosing 48.37 mL/min Estimated GFR (MDRD) 50 (>60) mL/min BUN/Creatinine Ratio 18.2 H (14-18) Glucose 92 (70-99) mg/dL Calcium 8.5 (8.5-10.1) mg/dL Magnesium 2.3 (1.8-2.4) mg/dL Total Bilirubin 0.4 (0.2-1.0) mg/dL AST 20 (15-37) U/L ALT 17 (14-59) U/L Alkaline Phosphatase 52 (46-116) U/L Troponin I < 0.017 (0.00-0.056) ng/mL Total Protein 6.7 (6.4-8.2) g/dl Albumin 3.5 (3.4-5.0) g/dl Globulin 3.2 gm/dL Albumin/Globulin Ratio 1.1 (1-2) Meds: Medications Discontinued Medications Generic Name Dose Route Start Last Admin Trade Name Jonathan PRN Reason Stop Dose Admin Atropine Sulfate Confirm 06/30/21 10:09 06/30/21 13:56 Atropine 0.1 Mg/Ml 10 Ml Syringe Administered 06/30/21 10:10 Not Given Dose 1 mg .ROUTE .STK-MED ONE Sodium Chloride 10 ml 06/30/21 10:06 06/30/21 13:54 Sodium Chloride 0.9% 10 Ml Syringe FLUSH 10 ml ASDIRECTED PRN Administration Keep Vein Open - Re-Assessments/Exams Free Text/Narrative Re-Assessment/Exam: 06/30/21 10:18 Several blood tests, a portable chest x-ray, and an ECG were ordered at triage. I asked Bisi YEBOAH to place pacer pads on the patient. The patient's ECG demonstrates a sinus bradycardia at 37 bpm, with no ischemic changes. No AV blocks. Her QTc is within normal limits. Case discussed with Dr. Gibbons, Board Certified Orthodontist on-call for Dr. Peralta, at 10:15. 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 The plan will be to keep the patient here in the ED to wait for the metoprolol to wear off and her heart rate increase. Obviously, if her condition declines, she may need to be externally paced, and in that case, I would need to sedate and intubate her. In that case, I would need to transfer her. Provided the patient does well, however, he recommended that I have her follow-up with Dr. Fabian DHILLON. 06/30/21 11:21 Portable chest x-ray is read by Dr. Bliss as: 1. Questionable nodule off the inferior right hilar region. Recommend contrast-enhanced chest CT to further evaluate. 2. Other incidental findings. No other acute finding is seen on the portable chest x-ray. 12/06/21 12:08 The patient's CBC is unremarkable. Her CMP is remarkable for BUN/Cr slightly elevated at 20/1.1, with the remainder of her CMP being unremarkable. Her magnesium level is within normal limits at 2.3. Her troponin is undetectably low. Her D-dimer is within normal limits at 0.30. Her PT/INR within normal limits. At present, the patient's BP is 101/51, with a HR of 32 bpm. 06/30/21 15:39 The patient's BP is now 110/72, with a HR of 51 bpm. 06/30/21 15:46 Test results discussed with the patient and her (now present). I will discharge her home with the recommendation that she decrease her metoprolol to 25 mg nightly. She is currently on 25 mg po BID, however, unfortunately, that is the smallest dose that metoprolol tartrate comes, therefore I cannot decrease the dosage. Taking the metoprolol at night will mitigate symptoms to while she is sleeping, and she should do well during the day, however, if she continues to be symptomatic, the metoprolol may need to be discontinued altogether. She is to follow-up with Dr. Peralta at the next available appointment. Departure - Departure Time of Disposition: 15:48 Disposition: Home, Self-Care 01 Condition: Good Clinical Impression: Drug-induced sinus bradycardia Instructions: Bradycardia, Adult Referrals: Angel Luis Howard MD [Primary Care Provider] - Nicholas Peralta MD [Ordering Only Provider] - Forms: ED Department Discharge Additional Instructions: You were seen in the emergency room after you became dizzy and short of breath this morning, with a low heart rate. In the ER, your blood pressure was found to be low, with a heart rate of 37 bpm. Work-up in the ER included numerous blood tests, a chest x-ray, and an ECG. Your entire work-up was unremarkable. Based on your history, physical exam, and ER tests, the cause of your low blood pressure and low heart rate is most likely due to excessive metoprolol. Going forward, we recommend that you decrease your dosage of metoprolol to 1 tablet (25 mg) every night, preferably close to bedtime, starting tonight. We recommend that you follow-up with your Board Certified Orthodontist, Dr. Nicholas Peralta, at the next available appointment. If any other problems, including recurrence of today's symptoms, please do not hesitate to return to the ER. Sepsis Event Note (ED) - Evaluation Sepsis Screening Result: No Definite Risk - Focused Exam Vital Signs: Vital Signs Temp Pulse Resp BP Pulse Ox 06/30/21 16:10 50 L 19 128/82 98 06/30/21 14:00 46 L 18 111/62 96 06/30/21 13:00 40 L 20 113/53 L 96 06/30/21 12:30 43 L 17 91/59 L 97 06/30/21 12:00 44 L 14 101/51 L 97 06/30/21 11:30 33 L 18 93/55 L 92 L 06/30/21 11:00 35 L 14 88/46 L 94 L 06/30/21 10:33 32 L 16 95/48 L 95 06/30/21 10:03 35.6 C L 37 L 15 87/68 L 96 - My Orders Last 24 Hours: My Active Orders 06/30/21 10:06 Peripheral IV Insertion Adult [OM.PC] Stat - Assessment/Plan Last 24 Hours: My Active Orders 06/30/21 10:06 Peripheral IV Insertion Adult [OM.PC] Stat
--- NOTE | 2021-06-30 10:29 | CR ---
Chest: Portable view of the chest was obtained. Comparison: Prior chest x-ray of 03/21/21. Slight blunting of the right lateral costophrenic angle is seen which appears stable. Questionable nodule is noted within the lower right lung which is off the inferior right hilar region measuring about 9 mm. This is not seen on prior study with definite certainty. Lungs otherwise are clear with no acute parenchymal change. Heart size and mediastinum are within normal limits for portable technique. Scattered disc space narrowing and endplate spurring are noted within the spine. Impression: 1. Questionable nodule off the inferior right hilar region. Recommend contrast-enhanced chest CT to further evaluate. 2. Other incidental findings. No other acute finding is seen on the portable chest x-ray. Diagnostic code #3
[2021-06-30 16:19] VITALS: BP 128/82; PULSE 50
== END 2021-06-30 16:09 | disposition home or self-care (01) ==
LOC: JD.ED 09:41
DX: R00.0 Tachycardia, unspecified (principal); T44.7X5A Adverse effect of beta-adrenoreceptor antagonists, initial encounter; I48.91 Unspecified atrial fibrillation; I10 Essential (primary) hypertension; E11.9 Type 2 diabetes mellitus without complications; E03.9 Hypothyroidism, unspecified; E66.9 Obesity, unspecified; Z79.01 Long term (current) use of anticoagulants; Z79.899 Other long term (current) drug therapy; Z86.16 Personal history of COVID-19; Z68.42 Body mass index [BMI] 45.0-49.9, adult
CPT/HCPCS: 36415; 71045; 71045-26; 80053; 83735; 84484; 85025; 85379; 85610; 93005; 99285-25

== ENCOUNTER 2022-11-20 09:45 | Day surgery (SDC) | payer BC ==
[2022-11-20] MEDS ORDERED: Lidocaine 1% 50 ML MDV ONE (09:55)
[2022-11-20] MEDS ORDERED: Bupivacaine 0.5%/EPINEPHrine 1:200,000 50 ML MDV ONE (09:55)
[2022-11-20] MEDS ORDERED: Midazolam 1 MG/ML 2 ML SDV ONE (10:09)
[2022-11-20] MEDS ORDERED: Propofol 200 MG/20 ML SDV ONE (10:09)
[2022-11-20] MEDS ORDERED: fentaNYL 250 MCG/5 ML SDV ONE (10:10)
[2022-11-20] MEDS ORDERED: Rocuronium 50 MG/5 ML Vial ONE (10:10)
[2022-11-20] MEDS ORDERED: Lidocaine 1% 2 ML ONE (10:10)
[2022-11-20] MEDS ORDERED: Lidocaine 1% PF 2 ML SDV ONE (10:30)
[2022-11-20] MEDS ORDERED: Sodium Chloride 0.9% 10 ML Syringe FLUSH PRN (10:37)
[2022-11-20] MEDS ORDERED: Lidocaine 1%/Sod Bicarbonate in NS 8.4% 1 ML Syringe IDERM PRN (10:37)
[2022-11-20] MEDS ORDERED: Lactated Ringers 1,000 ML IV SCH (10:45)
[2022-11-20] MEDS ORDERED: Ondansetron 4 MG/2 ML SDV ONE (11:04)
[2022-11-20] MEDS ORDERED: Dexamethasone 4 MG/ML 5 ML MDV ONE (11:04)
[2022-11-20] MEDS ORDERED: ceFAZolin 2 GM Vial ONE (11:07)
[2022-11-20] MEDS ORDERED: Neostigmine Methylsulfate 10 MG/10 ML MDV ONE (11:49)
[2022-11-20] MEDS ORDERED: fentaNYL 100 MCG/2 ML SDV IVPUSH PRN (12:53)
[2022-11-20] MEDS ORDERED: HYDROmorphone 0.5 MG/0.5 ML Syringe IVPUSH PRN (12:54)
[2022-11-20] MEDS ORDERED: oxyCODONE 5 MG Tab PO PRN (13:05)
[2022-11-20 15:45] VITALS: PULSE 57
[2022-11-20 15:46] VITALS: BP 117/78
[2022-11-20] MEDS ORDERED: Sodium Chloride 0.9% 10 ML Syringe FLUSH SCH (21:00)
== END 2022-11-20 15:40 | disposition home or self-care (01) ==
LOC: JD.SDS 09:45
PROVIDERS: ATTEND Surgery
DX: K80.12 Calculus of gallbladder with acute and chronic cholecystitis without obstruction (principal); F41.9 Anxiety disorder, unspecified; F32.A Depression, unspecified; I11.0 Hypertensive heart disease with heart failure; F90.9 Attention-deficit hyperactivity disorder, unspecified type; I50.9 Heart failure, unspecified; I48.91 Unspecified atrial fibrillation; E78.5 Hyperlipidemia, unspecified; E03.9 Hypothyroidism, unspecified; R74.8 Abnormal levels of other serum enzymes; G43.909 Migraine, unspecified, not intractable, without status migrainosus; E66.01 Morbid (severe) obesity due to excess calories; G47.33 Obstructive sleep apnea (adult) (pediatric); E11.9 Type 2 diabetes mellitus without complications; E55.9 Vitamin D deficiency, unspecified; Z79.01 Long term (current) use of anticoagulants; Z98.890 Other specified postprocedural states; Z79.899 Other long term (current) drug therapy; Z68.42 Body mass index [BMI] 45.0-49.9, adult; Z86.16 Personal history of COVID-19; Z90.49 Acquired absence of other specified parts of digestive tract
CPT/HCPCS: 47562; 82947; A9270; J0690; J1100; J2001; J2250; J2405; J2704; J2710; J3010; J3490; J7120; 00790

== ENCOUNTER 2022-12-02 15:36 | Emergency (ER) | payer BC ==
[2022-12-02] MEDS ORDERED: Sodium Chloride 0.9% 10 ML Syringe FLUSH PRN (16:17)
[2022-12-02 17:03] LABS: BASOPHILS ABSOLUTE AUTO 0.06 K/mm3 (0.01-0.08); BASOPHILS PERCENT AUTO 0.9 % (0.1-1.2); EOSINOPHILS ABSOLUTE AUTO 0.34 K/mm3 (0.04-0.36); HEMATOCRIT 39.4 % (34.1-44.9); IMMATURE GRAN ABSOLUTE AUTO 0.03 K/mm3 (0.00-0.10); IMMATURE GRAN PERCENT AUTO 0.4 % (<=1.0); LYMPHOCYTES ABSOLUTE AUTO 2.52 K/mm3 (1.18-3.74); LYMPHOCYTES PERCENT AUTO 37.3 % (19.3-51.7); MEAN CORPUSCULAR HEMOGLOBIN 29.6 pg (25.6-32.2); MEAN CORPUSCULAR VOLUME 89.7 fl (79.4-94.8); MEAN PLATELET VOLUME 11.5 fl (9.4-12.3); MONOCYTES ABSOLUTE AUTO 0.65 K/mm3 (0.24-0.36); MONOCYTES PERCENT AUTO 9.6 % (4.7-12.5); NEUTROPHILS ABSOLUTE AUTO 3.16 K/mm3 (1.56-6.13); NEUTROPHILS PERCENT AUTO 46.8 % (34.0-71.1); PLATELET COUNT,PLT 293 K/mm3 (182-369); RED BLOOD CELL COUNT 4.39 M/mm3 (3.98-5.22); WHITE BLOOD CELL COUNT,WBC 6.76 K/mm3 (3.98-10.04)
[2022-12-02 17:34] LABS: A/G RATIO 0.6 (1-2); ALBUMIN 2.8 g/dl (3.4-5.0); ANION GAP 14.1 (5-15); BILIRUBIN TOTAL 1.9 mg/dL (0.2-1.0); C-REACTIVE PROTEIN 2.9 mg/dL (<1.0); CALCIUM 8.9 mg/dL (8.5-10.1); CREATININE 0.8 mg/dL (0.55-1.02); EST CRCL DRUG DOSING (CG) 64.76 mL/min; POTASSIUM,K 3.1 mEq/L (3.5-5.1); PROTEIN TOTAL,TP 7.2 g/dl (6.4-8.2)
[2022-12-02] MEDS ORDERED: Sodium Chloride 0.9% 10 ML Syringe FLUSH ONE (18:09)
[2022-12-02] MEDS ORDERED: Iopamidol 612 MG/ML 50 ML SDV IVPUSH ONE (18:09)
[2022-12-02] MEDS ORDERED: Iopamidol 612 MG/ML 100 ML Bottle IVPUSH ONE (18:09)
[2022-12-02 21:30] VITALS: BP 129/69; PULSE 58
== END 2022-12-02 22:08 | disposition home or self-care (01) ==
LOC: JD.ED 15:36
DX: R10.84 Generalized abdominal pain (principal); R79.89 Other specified abnormal findings of blood chemistry; I48.91 Unspecified atrial fibrillation; I10 Essential (primary) hypertension; E11.9 Type 2 diabetes mellitus without complications; E03.9 Hypothyroidism, unspecified; E66.9 Obesity, unspecified; Z68.41 Body mass index [BMI] 40.0-44.9, adult; Z90.49 Acquired absence of other specified parts of digestive tract; Z79.01 Long term (current) use of anticoagulants; Z79.899 Other long term (current) drug therapy; Z86.16 Personal history of COVID-19
CPT/HCPCS: 36415; 74177; 76705; 80053; 83690; 84484; 85025; 86140; 93005; 99284; J3490; Q9967; 93010

== ENCOUNTER 2022-12-16 14:39 | Inpatient (IN) | payer BC ==
[2022-12-16] MEDS ORDERED: Sodium Chloride 0.9% 1,000 ML IV ONE (16:31)
[2022-12-16] MEDS ORDERED: Sodium Chloride 0.9% 10 ML Syringe FLUSH PRN (16:31)
[2022-12-16 17:17] LABS: APPEARANCE,URINE CLEAR (Clear); BILIRUBIN,URINE NEGATIVE (Negative); COLOR,URINE YELLOW (Yellow); GLUCOSE,URINE NEGATIVE (Negative); KETONES,URINE NEGATIVE (Negative); LEUKOCYTE ESTERASE,URINE NEGATIVE (Negative); NITRITE,URINE NEGATIVE (Negative); OCCULT BLOOD,URINE 2+ (Negative); PH,URINE 8.5 (5.0-8.0); PROTEIN,URINE NEGATIVE (Negative); UROBILINOGEN,URINE 0.2 (0.2-1.0)
[2022-12-16] MEDS ORDERED: Pantoprazole 40 MG Vial IVPUSH ONE (17:22)
[2022-12-16 17:24] LABS: BACTERIA,URINE FEW /hpf (FEW); MUCUS,URINE NOT SEEN /hpf (FEW); SQUAMOUS EPITHELIAL CELLS,UR 0-5 /hpf (0-5); WBC,URINE 0-5 /hpf (0-5)
[2022-12-16 17:50] LABS: BASOPHILS ABSOLUTE AUTO 0.07 K/mm3 (0.01-0.08); BASOPHILS PERCENT AUTO 0.7 % (0.1-1.2); EOSINOPHILS ABSOLUTE AUTO 0.13 K/mm3 (0.04-0.36); EOSINOPHILS PERCENT AUTO 1.2 (0.7-5.8); HEMATOCRIT 36.8 % (34.1-44.9); HEMOGLOBIN 11.9 gm/dl (11.2-15.7); IMMATURE GRAN ABSOLUTE AUTO 0.02 K/mm3 (0.00-0.10); IMMATURE GRAN PERCENT AUTO 0.2 % (<=1.0); LYMPHOCYTES ABSOLUTE AUTO 4.13 K/mm3 (1.18-3.74); LYMPHOCYTES PERCENT AUTO 38.8 % (19.3-51.7); MEAN CORPUSCULAR HEMOGLOBIN 29.8 pg (25.6-32.2); MEAN CORPUSCULAR HGB CONC 32.3 g/dl (32.2-35.5); MONOCYTES ABSOLUTE AUTO 0.83 K/mm3 (0.24-0.36); MONOCYTES PERCENT AUTO 7.8 % (4.7-12.5); NEUTROPHILS ABSOLUTE AUTO 5.47 K/mm3 (1.56-6.13); NEUTROPHILS PERCENT AUTO 51.3 % (34.0-71.1); PLATELET COUNT,PLT 279 K/mm3 (182-369); WHITE BLOOD CELL COUNT,WBC 10.65 K/mm3 (3.98-10.04)
[2022-12-16 18:08] LABS: INR 1.09; PROTHROMBIN TIME 11.6 SECONDS (9.7-12.0)
[2022-12-16 18:13] LABS: A/G RATIO 0.7 (1-2); ALANINE AMINOTRANSFERASE,ALT 107 U/L (14-59); ALBUMIN 2.8 g/dl (3.4-5.0); ALKALINE PHOSPHATASE 512 U/L (46-116); ANION GAP 16.8 (5-15); ASPARTATE AMNIOTRANSFERASE,AST 56 U/L (15-37); BILIRUBIN TOTAL 0.8 mg/dL (0.2-1.0); BLOOD UREA NITROGEN,BUN 30 mg/dL (7-18); BUN/CREATININE RATIO 33.3 (14-18); C-REACTIVE PROTEIN <0.2 mg/dL (<1.0); CALCIUM 9.3 mg/dL (8.5-10.1); CARBON DIOXIDE,CO2 22 mEq/L (21-32); CHLORIDE,CL 110 mEq/L (98-107); CREATININE 0.9 mg/dL (0.55-1.02); EST CRCL DRUG DOSING (CG) 57.56 mL/min; ESTIMATED GFR 71 mL/min (>60); GAMMA GLUTAMYL TRANSFERASE,GGT 741 U/L (5-55); GLUCOSE RANDOM 106 mg/dL (70-99); LIPASE 131 U/L (73-393); POTASSIUM,K 3.8 mEq/L (3.5-5.1); PROTEIN TOTAL,TP 6.9 g/dl (6.4-8.2); SODIUM,NA 145 mEq/L (136-145)
[2022-12-16] MEDS: Lactated Ringers 1,000 ML IV SCH (18:53)
[2022-12-16] MEDS ORDERED: Flecainide 50 MG Tab PO ONE (21:00)
[2022-12-16] MEDS ORDERED: Topiramate 25 MG Tab PO ONE (21:00)
[2022-12-16] MEDS ORDERED: Metoprolol Tartrate 50 MG Tab PO ONE (21:00)
[2022-12-17] MEDS: Lactated Ringers 1,000 ML IV SCH ×3 (02:38→19:14)
[2022-12-17] MEDS: Levothyroxine 50 MCG Tab PO SCH (05:46)
[2022-12-17 05:58] LABS: A/G RATIO 0.7 (1-2); ALBUMIN 2.3 g/dl (3.4-5.0); ANION GAP 11.4 (5-15); BILIRUBIN TOTAL 0.6 mg/dL (0.2-1.0); CALCIUM 8.2 mg/dL (8.5-10.1); CREATININE 0.6 mg/dL (0.55-1.02); EST CRCL DRUG DOSING (CG) 86.34 mL/min; POTASSIUM,K 3.4 mEq/L (3.5-5.1); PROTEIN TOTAL,TP 5.5 g/dl (6.4-8.2)
[2022-12-17 06:00] LABS: HEMATOCRIT 30.4 % (34.1-44.9); MEAN CORPUSCULAR HEMOGLOBIN 29.5 pg (25.6-32.2); MEAN CORPUSCULAR HGB CONC 31.6 g/dl (32.2-35.5); MEAN CORPUSCULAR VOLUME 93.5 fl (79.4-94.8); MEAN PLATELET VOLUME 12.9 fl (9.4-12.3); PLATELET COUNT,PLT 199 K/mm3 (182-369); RED BLOOD CELL COUNT 3.25 M/mm3 (3.98-5.22); WHITE BLOOD CELL COUNT,WBC 6.85 K/mm3 (3.98-10.04)
[2022-12-17 06:21] LABS: HEMOGLOBIN 9.6 gm/dl (11.2-15.7)
[2022-12-17] MEDS ORDERED: FENOFIBRATE MICRONIZED 134 MG PO SCH (09:00)
[2022-12-17] MEDS ORDERED: VALSARTAN 80 MG PO SCH (09:00)
[2022-12-17] MEDS ORDERED: Non-Formulary Medication 1 Each (Pravastatin 40 MG Tablet) PO SCH (09:00)
[2022-12-17] MEDS ORDERED: Empagliflozin 25 MG Tab PO SCH (09:00)
[2022-12-17] MEDS ORDERED: TOPIRAMATE 50 MG PO SCH (09:00)
[2022-12-17] MEDS: Flecainide 50 MG Tab PO SCH ×2 (10:16→20:52)
[2022-12-17] MEDS: VORTIOXETINE HYDROBROMIDE 20 MG PO SCH (10:19)
[2022-12-17] MEDS: Metoprolol Tartrate 50 MG Tab PO SCH ×2 (10:20→20:52)
[2022-12-17] MEDS: Losartan 50 MG Tab PO SCH (10:20)
[2022-12-17 16:45] LABS: HEMATOCRIT 31.1 % (34.1-44.9)
[2022-12-18] MEDS: Lactated Ringers 1,000 ML IV SCH ×3 (03:00→22:53)
[2022-12-18] MEDS: Levothyroxine 50 MCG Tab PO SCH (06:37)
[2022-12-18 06:56] LABS: HEMATOCRIT 29.3 % (34.1-44.9); HEMOGLOBIN 9.2 gm/dl (11.2-15.7)
[2022-12-18] MEDS: Metoprolol Tartrate 50 MG Tab PO SCH ×2 (08:11→20:04)
[2022-12-18] MEDS: Flecainide 50 MG Tab PO SCH ×2 (08:14→20:05)
[2022-12-18] MEDS: VORTIOXETINE HYDROBROMIDE 20 MG PO SCH (08:14)
[2022-12-18] MEDS: Losartan 50 MG Tab PO SCH (08:14)
[2022-12-19 05:28] LABS: BASOPHILS ABSOLUTE AUTO 0.05 K/mm3 (0.01-0.08); BASOPHILS PERCENT AUTO 0.9 % (0.1-1.2); EOSINOPHILS ABSOLUTE AUTO 0.32 K/mm3 (0.04-0.36); EOSINOPHILS PERCENT AUTO 5.8 (0.7-5.8); HEMATOCRIT 29.2 % (34.1-44.9); HEMOGLOBIN 9.2 gm/dl (11.2-15.7); IMMATURE GRAN ABSOLUTE AUTO 0.01 K/mm3 (0.00-0.10); IMMATURE GRAN PERCENT AUTO 0.2 % (<=1.0); LYMPHOCYTES ABSOLUTE AUTO 2.19 K/mm3 (1.18-3.74); LYMPHOCYTES PERCENT AUTO 39.5 % (19.3-51.7); MEAN CORPUSCULAR HEMOGLOBIN 29.9 pg (25.6-32.2); MEAN CORPUSCULAR HGB CONC 31.5 g/dl (32.2-35.5); MEAN CORPUSCULAR VOLUME 94.8 fl (79.4-94.8); MEAN PLATELET VOLUME 12.5 fl (9.4-12.3); MONOCYTES ABSOLUTE AUTO 0.42 K/mm3 (0.24-0.36); MONOCYTES PERCENT AUTO 7.6 % (4.7-12.5); NEUTROPHILS ABSOLUTE AUTO 2.55 K/mm3 (1.56-6.13); PLATELET COUNT,PLT 179 K/mm3 (182-369); RED BLOOD CELL COUNT 3.08 M/mm3 (3.98-5.22); WHITE BLOOD CELL COUNT,WBC 5.54 K/mm3 (3.98-10.04)
[2022-12-19] MEDS: Levothyroxine 50 MCG Tab PO SCH (06:35)
[2022-12-19] MEDS: Losartan 50 MG Tab PO SCH (09:08)
[2022-12-19] MEDS: Metoprolol Tartrate 50 MG Tab PO SCH (09:08)
[2022-12-19] MEDS: Flecainide 50 MG Tab PO SCH (09:08)
[2022-12-19 09:10] VITALS: PULSE 57
[2022-12-19] MEDS: VORTIOXETINE HYDROBROMIDE 20 MG PO SCH (09:10)
[2022-12-19 09:14] VITALS: BP 114/74
== END 2022-12-19 11:30 | disposition home or self-care (01) | DRG 810 ==
LOC: JD.ED 14:39 → JD.ICU 18:07
PROVIDERS: ADMIT Surgery; ATTEND Surgery
DX: K91.840 Postprocedural hemorrhage of a digestive system organ or structure following a digestive system procedure (principal); Z68.42 Body mass index [BMI] 45.0-49.9, adult; D68.32 Hemorrhagic disorder due to extrinsic circulating anticoagulants; D62 Acute posthemorrhagic anemia; I48.91 Unspecified atrial fibrillation; I10 Essential (primary) hypertension; M19.90 Unspecified osteoarthritis, unspecified site; F32.A Depression, unspecified; E11.9 Type 2 diabetes mellitus without complications; E03.9 Hypothyroidism, unspecified; E86.0 Dehydration; E78.5 Hyperlipidemia, unspecified; G47.33 Obstructive sleep apnea (adult) (pediatric); E66.01 Morbid (severe) obesity due to excess calories; T45.515A Adverse effect of anticoagulants, initial encounter; Z79.01 Long term (current) use of anticoagulants; Z90.49 Acquired absence of other specified parts of digestive tract; Z90.89 Acquired absence of other organs; Z79.899 Other long term (current) drug therapy; Z98.890 Other specified postprocedural states
CPT/HCPCS: 36415; 80053; 81001; 82947; 82977; 83690; 83735; 85014; 85018; 85025; 85027; 85610; 85730; 86140; 86850; 86900; 86901; 96361; 96374; 99285; 99285-25; A9270-GY; C9113; J3490; J7030; J7120

== ENCOUNTER 2024-08-29 10:35 | Emergency (ER) | payer BC, OTHER ==
[2024-08-29 11:11] LABS: BASOPHILS ABSOLUTE AUTO 0.1 K/mm3 (0.0-0.2); BASOPHILS PERCENT AUTO 0.7 % (0.0-1.0); EOSINOPHILS ABSOLUTE AUTO 0.1 K/mm3 (0.0-0.4); EOSINOPHILS PERCENT AUTO 1.8 % (0.0-6.0); HEMATOCRIT 39.7 % (37.0-47.0); HEMOGLOBIN 12.8 gm/dl (12.0-16.0); IMMATURE GRAN ABSOLUTE AUTO 0.04 K/mm3 (0.00-0.05); IMMATURE GRAN PERCENT AUTO 0.5 % (0.0-0.4); LYMPHOCYTES ABSOLUTE AUTO 2.6 K/mm3 (1.0-4.8); LYMPHOCYTES PERCENT AUTO 35.2 % (24.0-44.0); MEAN CORPUSCULAR HEMOGLOBIN 28.9 pg (28.0-32.0); MEAN CORPUSCULAR HGB CONC 32.2 g/dl (32.0-36.0); MEAN CORPUSCULAR VOLUME 89.6 fl (83.0-99.0); MEAN PLATELET VOLUME 10.8 fl (9.4-12.3); MONOCYTES ABSOLUTE AUTO 0.5 K/mm3 (0.0-0.8); MONOCYTES PERCENT AUTO 6.7 % (0.0-8.0); NEUTROPHILS PERCENT AUTO 55.1 % (41.0-71.0); PLATELET COUNT,PLT 243 K/mm3 (150-400); RED BLOOD CELL COUNT 4.43 M/mm3 (4.10-5.30)
[2024-08-29 11:36] LABS: A/G RATIO 0.8 (1-2); ALBUMIN 3.1 g/dl (3.4-5.0); ANION GAP 17.4 (5-15); BILIRUBIN TOTAL 0.5 mg/dL (0.2-1.0); BUN/CREATININE RATIO 15.6 (14-18); CALCIUM 8.5 mg/dL (8.5-10.1); CREATININE 0.9 mg/dL (0.55-1.02); EST CRCL DRUG DOSING (CG) 56.78 mL/min; POTASSIUM,K 3.4 mEq/L (3.5-5.1); PROTEIN TOTAL,TP 7.1 g/dl (6.4-8.2)
[2024-08-29] MEDS: Metoclopramide 10 MG Tab PO ONE (12:30)
[2024-08-29] MEDS: Acetaminophen 325 MG Tab PO ONE (12:30)
[2024-08-29 12:32] VITALS: BP 120/61; PULSE 64
== END 2024-08-29 12:46 | disposition home or self-care (01) ==
LOC: JD.ED 10:35
DX: R07.89 Other chest pain (principal); R51.9 Headache, unspecified; I10 Essential (primary) hypertension; E11.9 Type 2 diabetes mellitus without complications; E03.9 Hypothyroidism, unspecified; Z79.890 Hormone replacement therapy; Z79.899 Other long term (current) drug therapy; Z86.16 Personal history of COVID-19; Z90.49 Acquired absence of other specified parts of digestive tract
CPT/HCPCS: 36415; 71045; 80053; 84484; 85025; 87428; 93005; 99285; A9270; 93010; 99284

== ENCOUNTER 2024-09-18 06:52 | Emergency (ER) | payer OTHER ==
[2024-09-18] MEDS ORDERED: Sodium Chloride 0.9% 10 ML Syringe FLUSH PRN (07:10)
[2024-09-18] MEDS: Diltiazem 25 MG/5 ML SDV IVPUSH ONE (07:24)
[2024-09-18 07:28] LABS: BASOPHILS ABSOLUTE AUTO 0.1 K/mm3 (0.0-0.2); BASOPHILS PERCENT AUTO 0.6 % (0.0-1.0); EOSINOPHILS ABSOLUTE AUTO 0.1 K/mm3 (0.0-0.4); EOSINOPHILS PERCENT AUTO 1.2 % (0.0-6.0); HEMATOCRIT 43.3 % (37.0-47.0); HEMOGLOBIN 14.2 gm/dl (12.0-16.0); IMMATURE GRAN ABSOLUTE AUTO 0.04 K/mm3 (0.00-0.05); IMMATURE GRAN PERCENT AUTO 0.4 % (0.0-0.4); LYMPHOCYTES ABSOLUTE AUTO 2.7 K/mm3 (1.0-4.8); LYMPHOCYTES PERCENT AUTO 25.1 % (24.0-44.0); MEAN CORPUSCULAR HGB CONC 32.8 g/dl (32.0-36.0); MEAN CORPUSCULAR VOLUME 88.5 fl (83.0-99.0); MEAN PLATELET VOLUME 10.8 fl (9.4-12.3); MONOCYTES ABSOLUTE AUTO 0.7 K/mm3 (0.0-0.8); MONOCYTES PERCENT AUTO 6.2 % (0.0-8.0); NEUTROPHILS ABSOLUTE AUTO 7.1 K/mm3 (1.8-7.7); NEUTROPHILS PERCENT AUTO 66.5 % (41.0-71.0); PLATELET COUNT,PLT 240 K/mm3 (150-400); RED BLOOD CELL COUNT 4.89 M/mm3 (4.10-5.30); WHITE BLOOD CELL COUNT,WBC 10.62 K/mm3 (3.9-11.3)
[2024-09-18] MEDS: Diltiazem 125 MG in Sodium Chloride 0.9% 100 ML IV SCH (07:28)
[2024-09-18 07:45] LABS: A/G RATIO 0.8 (1-2); ALBUMIN 3.3 g/dl (3.4-5.0); ANION GAP 15.7 (5-15); BILIRUBIN TOTAL 0.3 mg/dL (0.2-1.0); CALCIUM 8.7 mg/dL (8.5-10.1); EST CRCL DRUG DOSING (CG) 53.09 mL/min; POTASSIUM,K 3.7 mEq/L (3.5-5.1); PROTEIN TOTAL,TP 7.7 g/dl (6.4-8.2); TSH 2.834 uIU/mL (0.358-3.74)
[2024-09-18 10:21] VITALS: BP 104/54; PULSE 57
== END 2024-09-18 10:16 | disposition home or self-care (01) ==
LOC: JD.ED 06:52
DX: I48.91 Unspecified atrial fibrillation (principal); I10 Essential (primary) hypertension; E11.9 Type 2 diabetes mellitus without complications; E03.9 Hypothyroidism, unspecified; Z86.16 Personal history of COVID-19; Z90.49 Acquired absence of other specified parts of digestive tract; Z79.01 Long term (current) use of anticoagulants; Z79.890 Hormone replacement therapy; Z79.899 Other long term (current) drug therapy
CPT/HCPCS: 36415; 71045; 80053; 83735; 83880; 84443; 84484; 85025; 93005; 96365; 99285; J3490

== ENCOUNTER 2024-10-26 22:11 | Inpatient (IN) | payer OTHER ==
[2024-10-26 22:40] LABS: BASOPHILS ABSOLUTE AUTO 0.1 K/mm3 (0.0-0.2); BASOPHILS PERCENT AUTO 0.6 % (0.0-1.0); EOSINOPHILS ABSOLUTE AUTO 0.2 K/mm3 (0.0-0.4); EOSINOPHILS PERCENT AUTO 1.8 % (0.0-6.0); HEMATOCRIT 44.9 % (37.0-47.0); HEMOGLOBIN 14.5 gm/dl (12.0-16.0); IMMATURE GRAN ABSOLUTE AUTO 0.03 K/mm3 (0.00-0.05); IMMATURE GRAN PERCENT AUTO 0.3 % (0.0-0.4); LYMPHOCYTES ABSOLUTE AUTO 3.9 K/mm3 (1.0-4.8); LYMPHOCYTES PERCENT AUTO 42.7 % (24.0-44.0); MEAN CORPUSCULAR HEMOGLOBIN 29.2 pg (28.0-32.0); MEAN CORPUSCULAR HGB CONC 32.3 g/dl (32.0-36.0); MEAN CORPUSCULAR VOLUME 90.3 fl (83.0-99.0); MEAN PLATELET VOLUME 10.9 fl (9.4-12.3); MONOCYTES ABSOLUTE AUTO 0.7 K/mm3 (0.0-0.8); MONOCYTES PERCENT AUTO 7.9 % (0.0-8.0); NEUTROPHILS ABSOLUTE AUTO 4.2 K/mm3 (1.8-7.7); NEUTROPHILS PERCENT AUTO 46.7 % (41.0-71.0); PLATELET COUNT,PLT 251 K/mm3 (150-400); RED BLOOD CELL COUNT 4.97 M/mm3 (4.10-5.30); WHITE BLOOD CELL COUNT,WBC 9.04 K/mm3 (3.9-11.3)
[2024-10-26] MEDS: Diltiazem 25 MG/5 ML SDV IVPUSH ONE (22:50)
[2024-10-26] MEDS: Sodium Chloride 0.9% 1,000 ML IV ONE (22:50)
[2024-10-26] MEDS: Diltiazem 125 MG in Sodium Chloride 0.9% 100 ML IV SCH (22:50)
[2024-10-26 23:08] LABS: A/G RATIO 0.8 (1-2); ALBUMIN 3.4 g/dl (3.4-5.0); ANION GAP 17.8 (5-15); BILIRUBIN TOTAL 0.3 mg/dL (0.2-1.0); BUN/CREATININE RATIO 19.1 (14-18); CALCIUM 8.8 mg/dL (8.5-10.1); CREATININE 1.1 mg/dL (0.55-1.02); EST CRCL DRUG DOSING (CG) 46.46 mL/min; POTASSIUM,K 3.8 mEq/L (3.5-5.1); PROTEIN TOTAL,TP 7.7 g/dl (6.4-8.2)
[2024-10-27 00:18] LABS: BARBITURATE SCREEN,URINE NEGATIVE (CUTOFF=200); BENZODIAZEPINES SCREEN,URINE NEGATIVE (CUTOFF=150); BUPRENORPHINE SCREEN,URINE NEGATIVE (CUTOFF=10); METHADONE SCREEN, URINE NEGATIVE (CUTOFF=200); METHAMPHETAMINES SCREEN, URINE NEGATIVE (CUTOFF=500); OXYCODONE SCREEN,URINE NEGATIVE (CUT0FF=100); THC SCREEN,URINE 20 NG/ML NEGATIVE (CUTOFF=50)
[2024-10-27 00:45] LABS: AMPHETAMINES SCREEN, URINE NEGATIVE (CUTOFF=500)
[2024-10-27] MEDS: Metoprolol Tartrate 25 MG Tab PO ONE (01:05)
[2024-10-27] MEDS: Potassium Chloride 10 MEQ in Premix Bag 1 BAG IV ONE (01:35)
[2024-10-27] MEDS: LORazepam 2 MG/ML SDV IVPUSH ONE (02:18)
[2024-10-27 02:44] LABS: BASOPHILS ABSOLUTE AUTO 0.1 K/mm3 (0.0-0.2); BASOPHILS PERCENT AUTO 0.6 % (0.0-1.0); EOSINOPHILS ABSOLUTE AUTO 0.2 K/mm3 (0.0-0.4); EOSINOPHILS PERCENT AUTO 1.9 % (0.0-6.0); HEMATOCRIT 43.2 % (37.0-47.0); HEMOGLOBIN 13.8 gm/dl (12.0-16.0); IMMATURE GRAN ABSOLUTE AUTO 0.02 K/mm3 (0.00-0.05); IMMATURE GRAN PERCENT AUTO 0.2 % (0.0-0.4); LYMPHOCYTES ABSOLUTE AUTO 3.7 K/mm3 (1.0-4.8); LYMPHOCYTES PERCENT AUTO 42.6 % (24.0-44.0); MEAN CORPUSCULAR HEMOGLOBIN 28.6 pg (28.0-32.0); MEAN CORPUSCULAR HGB CONC 31.9 g/dl (32.0-36.0); MEAN CORPUSCULAR VOLUME 89.6 fl (83.0-99.0); MEAN PLATELET VOLUME 10.8 fl (9.4-12.3); MONOCYTES ABSOLUTE AUTO 0.7 K/mm3 (0.0-0.8); NEUTROPHILS ABSOLUTE AUTO 4.1 K/mm3 (1.8-7.7); NEUTROPHILS PERCENT AUTO 46.7 % (41.0-71.0); PLATELET COUNT,PLT 222 K/mm3 (150-400); RED BLOOD CELL COUNT 4.82 M/mm3 (4.10-5.30); WHITE BLOOD CELL COUNT,WBC 8.75 K/mm3 (3.9-11.3)
[2024-10-27] MEDS ORDERED: LORazepam 2 MG/ML SDV IVPUSH PRN ×2 (03:01→14:05)
[2024-10-27] MEDS: Sodium Chloride 0.9% 1,000 ML IV SCH (03:57)
[2024-10-27 04:10] LABS: ANION GAP 16.8 (5-15); BUN/CREATININE RATIO 25.6 (14-18); CALCIUM 8.9 mg/dL (8.5-10.1); CREATININE 0.9 mg/dL (0.55-1.02); EST CRCL DRUG DOSING (CG) 56.78 mL/min; MAGNESIUM 2.1 mg/dL (1.8-2.4); POTASSIUM,K 3.8 mEq/L (3.5-5.1)
[2024-10-27] MEDS ORDERED: Heparin Sodium 5,000 Units/ML Vial IVPUSH ONE (07:30)
[2024-10-27] MEDS: Heparin Sodium/D5W 250 ML IV SCH (07:36)
[2024-10-27] MEDS: Morphine 4 MG/ML Syringe IVPUSH ONE (10:09)
[2024-10-27] MEDS: Midazolam 1 MG/ML 2 ML SDV IVPUSH ONE ×2 (10:10→10:29)
[2024-10-27] MEDS: Sodium Chloride 0.9% 500 ML IV ONE (10:21)
[2024-10-27] MEDS: Midazolam 1 MG/ML 2 ML SDV ONE (10:29)
[2024-10-27] MEDS: Potassium Chloride 20 MEQ Tab.ER PO ONE ×2 (12:27→12:34)
[2024-10-27] MEDS ORDERED: ALPRAZolam 0.25 MG Tab PO PRN (13:44)
[2024-10-27] MEDS ORDERED: Ondansetron 4 MG/2 ML SDV IV PRN (13:49)
[2024-10-27] MEDS ORDERED: oxyCODONE 5 MG Tab PO PRN (13:49)
[2024-10-27] MEDS ORDERED: Melatonin 3 MG Tab PO PRN (14:01)
[2024-10-27] MEDS ORDERED: Sennosides/Docusate Sodium 50-8.6 MG Tab PO PRN (14:01)
[2024-10-27] MEDS: Acetaminophen 325 MG Tab PO PRN (18:51)
[2024-10-27] MEDS: Apixaban 5 MG Tab PO SCH (20:45)
[2024-10-27] MEDS: Famotidine 20 MG/2 ML SDV IVPUSH SCH (20:48)
[2024-10-27] MEDS: Citalopram 20 MG Tab PO SCH (20:48)
[2024-10-28] MEDS: Metoprolol Tartrate 50 MG Tab PO SCH (02:06)
[2024-10-28 06:08] LABS: BUN/CREATININE RATIO 18.9 (14-18); CALCIUM 8.5 mg/dL (8.5-10.1); CREATININE 0.9 mg/dL (0.55-1.02); EST CRCL DRUG DOSING (CG) 56.78 mL/min; MAGNESIUM 2.1 mg/dL (1.8-2.4); PHOSPHORUS 3.7 mg/dL (2.6-4.7); TSH 1.236 uIU/mL (0.358-3.74)
[2024-10-28] MEDS: Levothyroxine 50 MCG Tab PO SCH (06:35)
[2024-10-28] MEDS: Bumetanide 1 MG Tab PO SCH (09:08)
[2024-10-28] MEDS: Losartan 50 MG Tab PO SCH (09:25)
[2024-10-28] MEDS: Topiramate 25 MG Tab PO SCH (09:28)
[2024-10-28] MEDS: buPROPion 150 MG Tab.ER PO SCH (09:29)
[2024-10-28] MEDS: Potassium Chloride 20 MEQ Tab.ER PO SCH (09:30)
[2024-10-28] MEDS: Rosuvastatin 10 MG Tab PO SCH (09:31)
[2024-10-28] MEDS: Pantoprazole 40 MG Tab.CR PO SCH (09:32)
[2024-10-28] MEDS: Spironolactone 25 MG Tab PO SCH (09:32)
[2024-10-28] MEDS: Empagliflozin 25 MG Tab PO SCH (09:34)
[2024-10-28 12:39] VITALS: BP 124/67; PULSE 76
== END 2024-10-28 12:42 | disposition home or self-care (01) | DRG 309 ==
LOC: JD.ED 22:11 → JD.ICU 10-27 03:02
PROVIDERS: ADMIT Student in an Organized Health Care Education/Training Program; ATTEND Student in an Organized Health Care Education/Training Program
PROC: 5A2204Z Restoration of Cardiac Rhythm, Single (ICD-10-PCS; principal; 2024-10-27)
DX: I48.91 Unspecified atrial fibrillation (principal); I50.32 Chronic diastolic (congestive) heart failure; J30.9 Allergic rhinitis, unspecified; H54.7 Unspecified visual loss; G47.30 Sleep apnea, unspecified; M19.90 Unspecified osteoarthritis, unspecified site; I11.0 Hypertensive heart disease with heart failure; F32.A Depression, unspecified; E11.9 Type 2 diabetes mellitus without complications; F41.9 Anxiety disorder, unspecified; E03.9 Hypothyroidism, unspecified; Z86.16 Personal history of COVID-19; Z90.49 Acquired absence of other specified parts of digestive tract; Z98.890 Other specified postprocedural states; Z79.899 Other long term (current) drug therapy; Z79.01 Long term (current) use of anticoagulants
CPT/HCPCS: 36415; 71045; 71045-26; 80048; 80053; 80306; 80307; 82947; 83735; 83880; 84100; 84443; 84484; 85025; 85730; 93005; 93010; 96365; 96375; 99223; 99239; 99285; 99285-25; A9270-GY; J1644; J2060; J2250; J2270; J3480; J3490; J7030

== ENCOUNTER 2025-04-19 06:23 | Day surgery (SDC) | payer OTHER ==
[2025-04-19] MEDS: Lactated Ringers 1,000 ML IV SCH (06:45)
[2025-04-19] MEDS ORDERED: Propofol 200 MG/20 ML SDV ONE (06:48)
[2025-04-19] MEDS ORDERED: dexmedeTOMIDine HCl 200 MCG/2 ML SDV ONE (06:48)
[2025-04-19] MEDS ORDERED: Lidocaine 1% 6 ML ONE (06:48)
[2025-04-19] MEDS ORDERED: Midazolam 1 MG/ML 2 ML SDV ONE (07:00)
[2025-04-19] MEDS ORDERED: Sodium Chloride 0.9% 10 ML Syringe FLUSH PRN (07:31)
[2025-04-19] MEDS ORDERED: Sodium Chloride 0.9% 10 ML Syringe FLUSH SCH (09:00)
[2025-04-19 10:46] VITALS: BP 99/68; PULSE 64
== END 2025-04-19 08:45 | disposition home or self-care (01) ==
LOC: JD.SDS 06:23
PROVIDERS: ATTEND Surgery
DX: Z01.818 Encounter for other preprocedural examination (principal); E66.01 Morbid (severe) obesity due to excess calories; K21.00 Gastro-esophageal reflux disease with esophagitis, without bleeding; K29.70 Gastritis, unspecified, without bleeding; K44.9 Diaphragmatic hernia without obstruction or gangrene; I48.91 Unspecified atrial fibrillation; I11.0 Hypertensive heart disease with heart failure; I50.9 Heart failure, unspecified; E78.5 Hyperlipidemia, unspecified; E03.9 Hypothyroidism, unspecified; E11.9 Type 2 diabetes mellitus without complications; Z79.82 Long term (current) use of aspirin; Z68.43 Body mass index [BMI] 50.0-59.9, adult; Z79.01 Long term (current) use of anticoagulants; Z79.899 Other long term (current) drug therapy; Z79.890 Hormone replacement therapy
CPT/HCPCS: 43235; C9777; J2003; J2250; J2704; J7120; 00731

== ENCOUNTER 2025-05-26 15:14 | Emergency (ER) | payer OTHER ==
[2025-05-26] MEDS ORDERED: Sodium Chloride 0.9% 10 ML Syringe FLUSH PRN (15:47)
[2025-05-26 15:54] LABS: BASOPHILS ABSOLUTE AUTO 0.1 K/mm3 (0.0-0.2); BASOPHILS PERCENT AUTO 0.8 % (0.0-1.0); EOSINOPHILS ABSOLUTE AUTO 0.2 K/mm3 (0.0-0.4); EOSINOPHILS PERCENT AUTO 2.7 % (0.0-6.0); IMMATURE GRAN ABSOLUTE AUTO 0.01 K/mm3 (0.00-0.05); IMMATURE GRAN PERCENT AUTO 0.2 % (0.0-0.4); LYMPHOCYTES ABSOLUTE AUTO 2.8 K/mm3 (1.0-4.8); LYMPHOCYTES PERCENT AUTO 41.7 % (24.0-44.0); MEAN PLATELET VOLUME 10.9 fl (9.4-12.3); MONOCYTES ABSOLUTE AUTO 0.6 K/mm3 (0.0-0.8); MONOCYTES PERCENT AUTO 8.6 % (0.0-8.0); NEUTROPHILS ABSOLUTE AUTO 3.1 K/mm3 (1.8-7.7); NEUTROPHILS PERCENT AUTO 46.0 % (41.0-71.0); NRBC ABSOLUTE 0.00 (0.00-0.02); NRBC PERCENT 0.0 % (0.0-0.2); PLATELET COUNT,PLT 227 K/mm3 (150-400); RED BLOOD CELL COUNT 5.08 M/mm3 (4.10-5.30); WHITE BLOOD CELL COUNT,WBC 6.62 K/mm3 (3.9-11.3)
[2025-05-26 16:29] LABS: A/G RATIO 0.7 (1-2); ALANINE AMINOTRANSFERASE,ALT 24.0 U/L (14-59); ASPARTATE AMNIOTRANSFERASE,AST 30.0 U/L (15-37); BILIRUBIN TOTAL 0.5 mg/dL (0.2-1.0); BLOOD UREA NITROGEN,BUN 12.0 mg/dL (7-18); CARBON DIOXIDE,CO2 25.0 mEq/L (21-32); CHLORIDE,CL 105.0 mEq/L (98-107); CREATININE 1.1 mg/dL (0.55-1.02); EST CRCL DRUG DOSING (CG) 45.82 mL/min; ESTIMATED GFR 55.0 mL/min (>60); GLUCOSE RANDOM 98.0 mg/dL (70-99); POTASSIUM,K 3.4 mEq/L (3.5-5.1); PROTEIN TOTAL,TP 8.0 g/dl (6.4-8.2); SODIUM,NA 141.0 mEq/L (136-145); TROPONIN I HIGH SENSITIVITY 5.0 pg/mL (<=51); TSH 2.155 uIU/mL (0.358-3.74)
[2025-05-26] MEDS: Alum Hydrox/Mag Hydrox/Simeth 30 ML, Lidocaine 2% 15 ML PO ONE (16:32)
[2025-05-26 17:00] VITALS: BP 128/110; PULSE 71
== END 2025-05-26 17:07 | disposition home or self-care (01) ==
LOC: JD.ED 15:14
DX: R07.89 Other chest pain (principal); I48.91 Unspecified atrial fibrillation; I11.0 Hypertensive heart disease with heart failure; I50.9 Heart failure, unspecified; E11.9 Type 2 diabetes mellitus without complications; E03.9 Hypothyroidism, unspecified; Z86.16 Personal history of COVID-19; Z79.890 Hormone replacement therapy; Z79.01 Long term (current) use of anticoagulants; Z79.84 Long term (current) use of oral hypoglycemic drugs; Z79.899 Other long term (current) drug therapy; Z90.49 Acquired absence of other specified parts of digestive tract
CPT/HCPCS: 36415; 71045; 80053; 83735; 84443; 84484; 85025; 93005; 99285; J3490; A9270-GY